=== PATIENT | female | born 1995 | race Caucasian/White ===

== ENCOUNTER 2023-08-31 09:22 | Outpatient (OUT) | payer MEDICAID, SELFPAY ==
--- NOTE | 2023-08-31 09:25 | US_ITS ---
The [address] [address] Patient Name: DAKSHA HUYNH MRN: [id number] date: 1995 Sex: F Assigned Patient Location: [facility] Current Patient Location: [facility] Accession/Order Number: [id number] Exam Date: 08/31/2023 09:25 Report Date: 08/31/2023 12:39 At the request of: JULIEN GUTIÉRREZ Procedure: US pelvis w/ transvaginal EXAMINATION: US pelvis w/ transvaginal HISTORY: OVARIAN CYST COMPARISON: Comparison report from [facility] dated 07/28/2023 FINDINGS: Transabdominal and transvaginal images The uterus is normal in size, contour and echotexture measuring 8.9 x 3.6 x 6.0 cm. No focal myometrial mass. Uterus is anteverted, anteflexed The endometrium measures 7 mm, normal The right ovary is normal measuring 4.3 x 1.7 x 1.8 cm. Normal color and Doppler flow. Resolution of previously identified cyst. The left ovary is normal in appearance measuring 4.9 x 3.3 x 4.2 cm. Normal color and Doppler flow. 4.0 x 3.8 x 2.9 cm area of anechoic echogenicity. No free fluid US/US pelvis w/ transvaginal IMPRESSION: 4.0 cm left ovarian simple cyst Normal right ovary Electronically authenticated by: BORIS TALLEY Date: 08/31/2023 12:39
== END 2023-08-31 09:23 | disposition home or self-care (01) ==
LOC: NOMS 09:22
PROVIDERS: PCP Family Medicine; Visit Provider Obstetrics & Gynecology
DX: N83.201 Unspecified ovarian cyst, right side (principal)
CPT/HCPCS: 76830; 76856

== ENCOUNTER 2024-11-23 20:32 | Outpatient (REF) | payer MEDICAID, SELFPAY ==
--- OUTSIDE RECORDS SUMMARY | 2024-11-23 20:36 | XMS_ITS | CCD ---
Author Organization [facility] Care Team Providers Care Janitor Helper Name Role Phone HOUSE, SR DAVE P Unavailable Unavailable HOUSE, SR DAVE P Unavailable Unavailable BRANDEN LUU Unavailable Unavailable CAMILLE VALENCIA Attending Unavailable ANNIE, CAMILLE Admitting Unavailable AHDOMARYBEL LAURENT Consulting Unavailable CAMILLE VALENCIA Consulting Unavailable PAY, NIECY Admitting Unavailable PAY, NIECY Attending Unavailable PAY, NIECY Consulting Unavailable DAVE BERNARDO Primary Care Unavailable Elizabeth Lema Unavailable JANEEN Vee Attending Provider Ary Vee Unavailable JULIEN GUTIÉRREZ Referring Unavailable DAVE BERNARDO Primary Care Unavailable Dave Bernardo MD Primary Care Provider Unavailable Primary Care Provider Unavailabl e No Pcp, No Pcp Primary Care Provider Unavailabl e Ly DO, Marce Mirta Attending Provider NO FAMILY, PHYSICIAN Primary Care Provider Unava ilable Ly, Marce L Attending Unavailable Ly, Marce L Admitting Unavailable NO FAMILY, PHYSICIAN Primary Care Unavailable RUSHER, ERIC S Attending Unavailable RUSHER, ERIC S Attending Unavailable RUSHER, ERIC S Attending Unavailable RUSHER, ERIC S Referring Unavailable RUSHER, ERIC S Attending Unavailable RUSHER, ERIC S Attending Unavailable RUSHER, ERIC S Referring Unavailable JULIEN GUTIÉRREZ Attending Unavailable RUSHER, ERIC S Attending Unavailable RUSHER, ANDREA Cameron Attending Unavailable SLIM, ANDREA Cameron Attending Unavailable SLIM, ERIC S Attending Unavailable DAVE BERNARDO Primary Care Unavailable TERRIE RUIZ Attending Unavailable HAL OBRIEN Attending Unavailable HAL OBRIEN Referring Unavailable DAVE BERNARDO Primary Care Unavailable JULIEN GUTIÉRREZ Referring Unavailable NO PCP, NO PCP Primary Care Unavailable NO PCP, NO PCP Primary Care Unavailable ERIC SOTOMAYOR Referring Unavailable NO PCP, NO PCP Primary Care Unavailable BORIS PATRICK Attending Unavailable BORIS PATRICK Referring Unavailable NO PCP, NO PCP Primary Care Unavailable BORIS PATRICK Referring Unavailable NO PCP, NO PCP Primary Care Unavailable ERIC SOTOMAYOR S Admitting Unavailable ERIC SOTOMAYOR Attending Unavailable ERIC SOTOMAYOR Referring Unavailable NO PCP, NO PCP Primary Care Unavailable BORIS PATRICK Attending Unavailable NO PCP, NO PCP Primary Care Unavailable NO PCP, NO PCP Primary Care Unavailable NANY LORENZO Attending Unavailable RYAN PRO Referring Unavailable NO PCP, NO PCP Primary Care Unavailable NONA CHIANG Attending Unavailable NONA CHIANG Referring Unavailable NO PCP, NO PCP Primary Care Unavailable Allergies Allergy Classification Reported Allergen(s) Allergy Type Date of Onset Reaction(s) Facility (1 source) Penicillin G Drug Allergy Unknown [facility] Other (3 sources) Bee Venom Protein (Honey Bee); Translations: [BEE VENOM PROTEIN (HONEY BEE)] Propensity to adverse reactions to drug 5 [facility] Medications Current Medications Medication Drug Class(es) Dates Sig (Normalized) Sig (Original) acetaminophen 500 mg oral tablet (11 sources) acetaminophen (T ylenol) 500 MG tablet Take by mouth Active take 2 tablets by mo uth every six hours as needed for pain acetaminophen (TYLENOL) 325 mg tablet Ta ke 2 tablets (650 mg total) by mouth every 6 (six) hours as needed for pain. Active celecoxib 100 mg oral capsule (1 source) Nonsteroidal Anti-inflammatory Drug Start: 10-20-2024 take 1 capsule by mouth twice daily for pain celecoxib (CeleBREX) 100 MG capsule TAKE 1 CAPSULE BY MOUTH TWICE A DAY FOR PAIN DO NOT TAKE WITH OTHER NSAIDS 10/20/2024 Active cyclobenzaprine hydrochloride 10 mg oral tablet (8 sources) Muscle Relaxant Start: 02-18-2024 take 1 tablet by mouth twice daily as needed for muscle spasms cyclobenzaprine (FLEXERIL) 10 mg tablet Take 1 tablet (10 mg total) by mouth 2 (two) times a day as needed for muscle spasms. 10 tablet 02/18/2024 Active meloxicam 15 mg oral tablet (18 sources) Nonsteroidal Anti-inflammatory Drug Start: 09-16-2023 End: 06-28-2024 take 1 tablet by mouth once daily meloxicam (Mobic) 15 MG tablet Indications: Plantar fascial fibromatosis TAKE 1 TABLET BY MOUTH EVERY DAY 30 tablet 2 06/08/2024 06/28/2024 Discontinued (Therapy completed) methylPREDNISolone (3 sources) Corticosteroid Start: 07-20-2024 End: 08-09-2024 methylPREDNISolone (Medrol Dospak) 4 MG tablets Indications: Plantar fasciitis Take as directed on package. 21 tablet 07/20/2024 08/09/2024 Discontinued (Therapy completed) Start: 07-20-2024 methylPREDNISo lone (Medrol Dospak) 4 MG tablets Indications: Plantar fasciitis Take as directed on package. 21 tablet 07/20/2024 Active ezghlxit-bphe-HN-calcium &mi ns (THERAGRAN-M) 9 mg iron-400 mcg tablet (1 source) tkmemjnr-jaak-PX -calcium &mins (THERAGRAN-M) 9 mg iron-400 mcg tablet Take 1 tablet by mouth in the morning. Active topiramate 25 mg oral tablet (17 sources) Start: 03-07-2024 topiramate (Topamax) 25 MG t ablet 03/07/2024 Active take 1 capsule by mouth in the m orning topiramate (TOPAMAX) 25 mg capsule Take 1 capsule (25 mg total) by mouth in the morning. Active Completed/Discontinued Medications Medication Drug Class(es) Dates Sig (Normalized) Sig (Original) betamethasone 3 mg/ml / betamethasone acetate 3 mg/ml injectable suspension (8 sources) Corticosteroid Start: 07-08-2024 End: 07-08-2024 betamethasone acetate-betamethason e sodium phosphate (Celestone) injection 3 mg Start: 07-08-2024 End: 07-08-2024 inject 3 mg by intramuscular injection once 3 mg, Intramuscular, Once, On Thu07/08/24 at 1045, For 1 dose Start: 07-08-2024 End: 07-08-2024 betamethasone acetate-betamethasone sodium phosphate (Celestone) injection 3 mg Start: 07-08-2024 End: 07-08-2024 inject 3 mg by intramuscular injection once 3 mg, Intramuscular, Once, On Thu07/08/24 at 1045, For 1 dose Start: 01-11-2024 End: 01-11-2024 betamethasone acetate-betamethasone sodium phosphate (Celestone) injection 3 mg Start: 01-11-2024 End: 01-11-2024 inject 3 mg by intramuscular injection once 3 mg, Intramuscular, Once, On Thu01/11/24 at 0915, For 1 dose metFORMIN hydrochloride 500 mg oral tablet (3 sources) Biguanide End: 05-02-2024 take 1 tablet by mouth twice daily metFORMIN (GLUCOPHAGE) 500 mg tablet Take 1 tablet by mouth 2 (two) times a day. 05/02/2024 Discontinued (Therapy completed) metFORMIN HCl No t-Taking/PRN metFORMIN HCl Ac tive naltrexone hydrochloride 50 mg oral tablet (4 sources) Opioid Antagonist Start: 08-10-2014 take 1 tablet by mouth every twenty-four hours Naltrexone HCl 50 mg 1 tablet Orally Once a day for 30 day(s) Aug, Not-Taking/PRN predniSONE 10 mg oral tablet (4 sources) Start: 08-09-2024 End: 11-23-2024 predniSONE (Deltasone) 10 MG tablet Indications: Plantar fasciitis Take twice daily for 5 days, then take once daily for 5 days. 15 tablet 08/09/2024 11/23/2024 Discontinued 1 ml triamcinolone acetonide 40 mg/ml prefilled syringe (8 sources) Corticosteroid Start: 07-08-2024 End: 07-08-2024 triamcinolone acetonide (Kenalog-40) injection 20 mg Start: 07-08-2024 End: 07-08-2024 inject 20 mg by intramuscular injection once 20 mg, Intramuscular, Once, On Thu07/08/24 at 1045, For 1 dose Start: 07-08-2024 End: 07-08-2024 triamcinolone acetonide (Kenalog-40) injection 20 mg Start: 07-08-2024 End: 07-08-2024 inject 20 mg by intramuscular injection once 20 mg, Intramuscular, Once, On Thu07/08/24 at 1045, For 1 dose Start: 01-11-2024 End: 01-11-2024 triamcinolone acetonide (Kenalog-40) injection 20 mg Start: 01-11-2024 End: 01-11-2024 inject 20 mg by intramuscular injection once 20 mg, Intramuscular, Once, On Thu01/11/24 at 0915, For 1 dose Problems Active Problems Problem Classification Problem Date Documented Da te Episodic/Chronic Abdominal pain (1 source) Pain in female pelvis; Translations: [Pelvic and perineal pain] 11-23-2024 Episodic Anxiety disorders (1 source) Anxiety disorder, unspecified; Translations: [ANXIETY DISORDER UNSPECIFIED] Onset: 11-29-2019 Chronic Diabetes mellitus without complication (3 sources) Type 2 diabetes mellitus without complication; Translations: [Type 2 diabetes mellitus without complications] Onset: 05-02-2024 05-02-2024 Chronic Fracture of lower limb (2 sources) Stress fracture of right calcaneus; Translations: [Stress fracture, right foot, initial encounter for fracture] 06-28-2024 Episodic Menstrual disorders (2 sources) Excessive and frequent menstruation with regular cycle; Translations: [Irregular periods] Onset: 07-28-2023 11-23-2024 Chronic Other acquired deformities (10 sources) Equinus contracture of the ankle; Translations: [Contracture, right ankle] 01-11-2024 Chronic Other connective tissue disease (19 sources) Plantar fasciitis; Translations: [Plantar fascial fibromatosis] 01-11-2024 Episodic Other connective tissue disease (8 sources) Pain in right foot; Translations: [Pain in right foot] 01-11-2024 Episodic Other connective tissue disease (2 sources) Plantar fascial fibromatosis; Translations: [Plantar fascial fibromatosis] 01-24-2024 Episodic Other connective tissue disease (2 sources) Tendinitis of right posterior tibial tendon; Translations: [Posterior tibial tendinitis, right leg] 11-19-2023 Episodic Other connective tissue disease (2 sources) Pain of right calf; Translations: [Pain in right lower leg] 11-19-2023 Episodic Other connective tissue disease (4 sources) Heel pain; Translations: [Pain in right foot] 11-19-2023 Episodic Other connective tissue disease (4 sources) Nontraumatic rupture of muscle; Translations: [Other rupture of muscle (nontraumatic), unspecified site] 06-28-2024 Episodic Other connective tissue disease (2 sources) Other bursitis of knee, right knee; Translations: [Other bursitis of knee, right knee] Onset: 09-14-2024 Episodic Other connective tissue disease (1 source) Pain in lower limb Onset: 07-12-2024 Episodic Other connective tissue disease (1 source) Synovial cyst of popliteal space [Figueroa], right knee; Translations: [Synovial cyst of popliteal space (Figueroa), right knee] Onset: 11-01-2024 Episodic Other gastrointestinal disorders (2 sources) Irritable bowel syndrome; Translations: [Irritable bowel syndrome without diarrhea] 06-24-2024 Chronic Other gastrointestinal disorders (2 sources) Irritable bowel syndrome without diarrhea; Translations: [Irritable bowel syndrome] 06-24-2024 Chronic Other gastrointestinal disorders (1 source) Constipation, unspecified; Translations: [Constipation, unspecified] Onset: 07-21-2024 Episodic Other injuries and conditions due to external causes (2 sources) Posterior medrano splints; Translations: [Other injury of other muscle(s) and tendon(s) at lower leg level, right leg, initial encounter] 11-19-2023 Episodic Other nervous system disorders (4 sources) Difficulty walking; Translations: [Difficulty in walking, not elsewhere classified] 11-04-2023 Chronic Other non-traumatic joint disorders (1 source) Pain of right wrist; Translations: [Pain in right wrist] Episodic Other non-traumatic joint disorders (1 source) Pain in right wrist Episodic Other non-traumatic joint disorders (2 sources) Instability of joint of right ankle; Translations: [Other instability, right ankle] 05-02-2024 Episodic Other non-traumatic joint disorders (1 source) Pain in right knee; Translations: [Pain in right knee] Onset: 07-12-2024 Episodic Other skin disorders (1 source) Localized swelling, mass and lump, right lower limb; Translations: [Localized swelling, mass and lump, right lower limb] Onset: 09-14-2024 Episodic Other upper respiratory infections (5 sources) Acute pharyngitis, unspecified; Translations: [Acute upper respiratory infection, unspecified] Onset: 06-19-2020 Episodic Residual codes; unclassified (6 sources) History of operative procedure on foot; Translations: [Other specified postprocedural states] 05-02-2024 Episodic Unclassified (1 source) CONTACT W/AND (SUSP) EXPOS COVID-19; Translations: [CONTACT W/AND (SUSP) EXPOS COVID-19] Onset: 06-21-2020 Unclassified (1 source) PERSONAL HISTORY OF COVID-19; Translations: [PERSONAL HISTORY OF COVID-19] Onset: 06-21-2020 Unclassified (1 source) Leg Pain, Swelling Onset: 11-18-2023 Past or Other Problems Problem Classification Problem Date Documented Date Episodic/Chronic Immunizations and screening for infectious disease (1 source) Contact with and (suspected) exposure to other viral communicable diseases; Translations: [Contact with and (suspected) exposure to other viral communicable diseases Z20.828] Onset: 12-25-2020 Resolved: 12-25-2020 Episodic Nonspecific chest pain (4 sources) Chest pain, unspecified; Translations: [Other chest pain] Onset: 11-27-2019 Episodic Other connective tissue disease (20 sources) Plantar fasciitis of right foot; Translations: [Plantar fascial fibromatosis] Onset: 06-24-2023 06-24-2023 Episodic Other connective tissue disease (1 source) Pain in right leg; Translations: [Pain in right leg] Onset: 11-18-2023 Episodic Other connective tissue disease (1 source) Leg swelling symptom Onset: 11-18-2023 Episodic Ovarian cyst (20 sources) Cyst of left ovary; Translations: [Unspecified ovarian cyst, left side] Onset: 09-07-2023 09-07-2023 Episodic Residual codes; unclassified (1 source) Other specified postprocedural states; Translations: [Other specified postprocedural states] Onset: 05-12-2024 Episodic Spondylosis; intervertebral disc disorders; other back problems (1 source) Backache Onset: 02-18-2024 Episodic Sprains and strains (3 sources) Strain of muscle, fascia and tendon of lower back, initial encounter; Translations: [Strain of unspecified muscle, fascia and tendon at wrist and hand level, right hand, initial encounter] Onset: 12-15-2016 Episodic Unclassified (1 source) Preprocedural examination done 05-02-2024 Unclassified (2 sources) Stress fracture of right calcaneus 06-28-2024 Results Test Name Value Interpretation Reference Range Facility MR KNEE RT WO CONTon 025 MR KNEE RT WO CONT MR KNEE RT WO CONT MR KNEE RT WO CONT CLINICAL INFORMATION: Figueroa's cyst of knee, right; Pes anserinus bursitis of right knee. COMPARISON: 07/12/2024. PROCEDURE: ?Multisequence, multiplanar MR images of the knee were obtained. FINDINGS: MENISCI Medial meniscus: Intact. Lateral meniscus: Intact. LIGAMENTS Cruciate ligaments: The ACL and PCL are intact. Medial collateral ligament: Superficial and deep components intact. No periligamentous edema. Lateral collateral ligament: Intact. EXTENSOR MECHANISM Extensor mechanism: The distal quadriceps and patellar tendons are intact. The patella is normally positioned within the trochlear groove. There is no retinacular disruption. FLUID Fluid: No joint effusion. No Figueroa's cyst. OSSEOUS and ARTICULAR STRUCTURES Bones: No fracture, stress reaction, or osseous lesion is seen. Red marrow. Patellofemoral compartment: No hyaline cartilage disease. Medial compartment: No hyaline cartilage disease. Lateral compartment: No hyaline cartilage disease. IMPRESSION: * No acute meniscal or ligamentous pathology. * No bursitis or Figueroa's cyst. Finalized by Seven Mena MD on 11/08/2024 10:42 AM Normal [facility] HCG ( test) IA.sheni d Ql (U)Ordered By: Marce Barnes on 07-21-2024 HCG ( test) Ql (U) Urine human chorionic gonadotropin (hCG) detection by immunoassay [facility] HCG,Urineon 07-21-2024 Beta HCG ( test) Ql (U) Negative Normal [facility] Comment on above: Result Comment: PERF ORMED BY: [place] [address] PATHOLOGIST SMELTING ENGINEER RYLAN RAMIREZ M.D. Performed By: #### U HCG #### [address] D-DIMERon 07-12-2024 D DIMER <^150 Normal 1-255 [facility] Comment on above: Result Comment: Resu lts <255 ng/mL DDU: The presensence of a VTE can safely be excluded with a negative D-Dimer result and Wells score. A negative result doesn't exclude the possibility of DIC. The test should be repeated along with other diagnostic tests if the patient's symptoms persist or worsen. Performed By: #### D [facility] #### [facility] ([facility]) [address] [place] [address] VIR XR KNEE RT 3 VWSon XR KNEE RT 3 VWS XR KNEE RT 3 VWS EXAM: XR KNEE RT 3 VWS CLINICAL INFORMATION: knee pain. COMPARISON: None. FINDINGS: There is no evidence for an acute displaced fracture or malalignment of the knee. There is no knee joint effusion. The knee joint spaces are well preserved. IMPRESSION: Normal 3 views of the knee. Finalized by Linus Parada MD on 07/12/2024 5:44 PM Normal [facility] MR FOOT RIGHT WO IV CONTRAST on 06-28-2024 MR FOOT RIGHT WO IV CONTRAST EXAM/TECHNIQUE: MR FOOT RIGHT WO IV CONTRAST, focused to the hindfoot. HISTORY: Right heel pain. Recent [place] procedure. Pain currently worse than before the procedure. Concern for plantar fascial tear, calcaneal stress fracture. COMPARISON: MRI 09/07/2023. Radiographs 12/23/2022. RESULT: Cartilage: Tibiotalar joint cartilage and subtalar joint cartilage appears to be preserved. Midfoot articular cartilage appears to be preserved. Ligaments: Talofibular ligaments, tibiofibular ligaments, calcaneofibular ligament and deltoid ligament all appear to be intact. Tendons: Achilles tendon, medial flexor tendons, peroneal tendons and extensor tendons are intact. Joint Fluid: Physiologic quantity of joint fluid. Bone Marrow: No evidence for fracture, osteochondral lesion, osteomyelitis or other marrow replacing lesion. Plantar Aponeurosis: Thickening and increased signal involving the central band of the plantar fascia with possible tiny area of partial-thickness tearing/stripping near origin, otherwise appears intact. Interval improved adjacent edema signal compared to prior with some residual edema signal. Sinus Tarsi: Sinus tarsi is within normal limits. Muscle: Muscle bulk and signal intensity is within normal limits. Tarsal Tunnel: Tarsal tunnel is within normal limits. Other: Small amount of plantar subcutaneous edema/stranding, superficial to the plantar fascial origin, likely postsurgical or reactive. No loculated collection. IMPRESSION: Planter fasciitis with possible tiny area of partial-thickness stripping/tearing near origin involving the central band. Interval improved adjacent edema signal. No evidence for fracture. ELECTRONICALLY SIGNED BY: Devan Mancilla MD Normal Not Available HCG ( test) Ql (U)o n 05-12-2024 Beta HCG ( test) Ql (U) Negative Normal [facility]G [facility] Comment on above: Performed By: #### 2 106-3 #### [facility] ([id number]) [address] [place] [address], [place] [address] MR LUMBAR SPINE WO CONTon MR LUMBAR SPINE WO CONT MR LUMBAR SPINE WO CONT MR LUMBAR SPINE WO CONT CLINICAL INFORMATION: Low back pain. Bilateral leg numbness and weakness COMPARISON: Prior lumbar spine CT from October 2013 and 08/07/2015 PROCEDURE: Routine lumbosacral spine protocol MRI was obtained without contrast material. Multisequence, multiplanar imaging was obtained. FINDINGS: Numbering assumes 4 lumbar type vertebrae with partial sacralization of L5 and disc space narrowing at L5-S1 level appreciated. No compression deformities. There is normal alignment. Unremarkable bone marrow signal. The visualized cord is within normal limits. Normal appearance of the cauda equina nerve roots. The conus medullaris terminates at mid L1 level. Paravertebral and visualized intraabdominal structures are unremarkable. Level by level: L1-L2: No significant disc herniation, spinal canal stenosis or neuroforaminal narrowing. L2-L3: No significant disc herniation, spinal canal stenosis or neuroforaminal narrowing. L3-L4: No significant disc herniation, spinal canal stenosis or neuroforaminal narrowing. L4-L5: Minimal broad-based central disc bulge flattening the anterior thecal sac but without significant canal stenosis. Mild right facet joint hypertrophy. No neural foramen narrowing. L5-S1: No significant disc herniation, spinal canal stenosis or neuroforaminal narrowing. Right facet joint effusion. IMPRESSION: * Suggestion of transitional L5 and partial sacralization with narrowing of the intervening L5-S1 disc space and loss of height appreciated. * Minimal broad-based central disc bulge at L4-5 without canal stenosis but mild right facet joint hypertrophy. Right facet joint effusion at L5-S1 level. Finalized by Donovan Chance MD on 02/18/2024 10:53 AM Normal [facility] US PELVIC WITH TRANSVAGINALo n 12-08-2023 US PELVIC WITH TRANSVAGINAL US PELVIC WITH TRANSVAGINAL CLINICAL INFORMATION: Right ovarian cyst COMPARISON: 07/28/23. PROCEDURE: Transabdominal imaging was obtained for the detection of extra-adnexal pathology. Transvaginal imaging was obtained for better visualization of the adnexa and endometrium. FINDINGS: The uterus measures 8.4 x 6.1 x 3.5 cm. Endometrial thickness 5 mm. Right ovary 3.0 x 2.0 x 2.0 cm, no current cyst. Left ovary measures 3.4 x 2.2 x 2.0 cm. No free fluid. Some small follicles are noted. IMPRESSION: * No acute findings. Resolution of previously identified cyst. Finalized by Seven Mena MD on 12/08/2023 2:02 PM Normal [facility] Fibrin D-dimer DDU (PPP) [Ma ss/Vol]on 11-18-2023 D DIMER <150 Normal <255 [facility] Comment on above: Result Comment: Results <255 ng/mL DDU: The presence of a VTE can safely be excluded with a negative D-Dimer result and Wells score. A negative result doesn't exclude the possibility of DIC. The test be repeated along with other diagnostic tests if the patient's symptoms persist or worsen. [email or web address] Performed By: #### 4 [id number] #### [facility] ([id number]) [address] [place] [id number] MR FOOT RIGHT WO IV CONTRAST on 09-07-2023 MR FOOT RIGHT WO IV CONTRAST EXAM: MR FOOT RIGHT WO IV CONTRAST HISTORY: Heel pain. COMPARISON : Radiographs December 23, 2022 TECHNIQUE: Multiplanar multisequence MRI of the foot was performed without contrast. FINDINGS: The plantar fascia is intact and without thickening or nodularity. Edema is present along the medial cord plantar fascia. Achilles tendon is intact. Sinus tarsi fat is preserved. Flexor and extensor tendons appear intact. No evidence of recent fracture or stress reaction. IMPRESSION: Findings compatible with plantar fasciitis. No evidence of recent fracture or stress reaction. ELECTRONICALLY SIGNED BY: Ronnell Gonzalez, DO Normal Not Available US PELVIC WITH TRANSVAGINALo n 07-29-2023 US PELVIC WITH TRANSVAGINAL US PELVIC WITH TRANSVAGINAL HISTORY: Menorrhagia with irregular cycles. COMPARISON: 07/07/2013. TECHNIQUE: Multiplanar transabdominal and transvaginal ultrasonography of the pelvis using grayscale imaging, supplemented by color Doppler as needed. FINDINGS: The uterus measures 9.7 x 5.8 x 4.2 cm. Normal contour without focal lesions. Endometrial stripe measures 4 mm in thickness which is normal for menstruating female..The right ovary measures 4.7 x 3.4 x 2.5 cm with follicular cyst seen measuring 3.9 x 2.9 x 3.1 cm.The left ovary measures 2.7 x 1.5 x 1.5 cm. No adnexal masses. Color Doppler demonstrates arterial and venous flow in both ovaries The bladder is within normal limits. No fluid in the cul-de-sac.. IMPRESSION: Follicular cyst in the right ovary. Follow-up ultrasound examination after 3 menstrual periods is recommended to evaluate progression. Otherwise, unremarkable pelvic echo.. Finalized by Donovan Chance MD on 07/29/2023 9:48 PM Normal [facility] XR wrist RT min 3V*on 2023 XR wrist RT min 3V* [facility] [place] [employer] Other XR wrist RT min 3V* [facility] [employer] Other XR wrist RT min 3V* [address] [place] [address] [employer] Other XR wrist RT min 3V* [facility] [id number] [employer] Other XR wrist RT min 3V* XRay Report [place] [employer] Other XR wrist RT min 3V* Signed [employer] Other XR wrist RT min 3V* Patient: Mirna Leo MR#: [id number] [employer] Other XR wrist RT min 3V* : 1995 Acct:[id number] [employer] Other XR wrist RT min 3V* Age/Sex: 27 / F ADM Date: 03/17/23 [employer] Other XR wrist RT min 3V* Loc: XDUCLY Room: Type: REG CLI [employer] Other XR wrist RT min 3V* Attending Dr: Ary Vee [facility] [employer] Other XR wrist RT min 3V* Copies to: Ary Vee [facility] [employer] Other XR wrist RT min 3V* Ordering Provider: Ary Vee 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 Now with pain and popping [employer] Other XR wrist RT min 3V* COMPARISON: None [employer] Other XR wrist RT min 3V* FINDINGS: [employer] Other XR wrist RT min 3V* No focal soft tissue abnormality is seen. No acute bony process is noted. Joint spaces appear [employer] Other XR wrist RT min 3V* maintained without bony erosions. [employer] Other XR wrist RT min 3V* XR/XR wrist RT min 3V* [employer] Other XR wrist RT min 3V* IMPRESSION: Nort [employer] Other XR wrist RT min 3V* NO ACUTE BONY PROCESS. [employer] Other XR wrist RT min 3V* Impression dictated by: Víctor Singh Jr., Bernice03/17/2023 11:02 AM [employer] Other XR wrist RT min 3V* Dictation Location: [place] [address] [employer] Other XR wrist RT min 3V* Transcribed By: PWS 03/17/23 1102 [employer] Other XR wrist RT min 3V* Dictated By: Víctor Singh Jr, DO 03/17/23 1101 [employer] Other XR wrist RT min 3V* Signed By: [employer] Other XR wrist RT min 3V* 03/17/23 1102 No rt [employer] Other COVID Quick Testingon 2020 Result Negative [employer] Other CULTURE THROATon 06-19-2020 CULTURE THROAT Culture Observations: Normal respiratory zander. Normal [facility] Comment on above: Performed By: #### S SCRN, THRTCX #### [facility] [address] [address] Kesha Haley [facility] 06-07 Covid-19 PCR NOT DETECTED Normal NOT DETECTED [facility] Comment on above: Result Comment: This test is not yet approved or cleared by the [place] FDA. When there are no FDA-approved or cleared tests available, and other criteria are met, FDA can make tests available under an emergency access mechanism called an Emergency Use Authorization (EUA). The EUA for this test is supported by the Motor Equipment Sergeant of Health and Human Service's (HHS's) declaration that circumstances exist to justify the emergency use of in vitro diagnostics for the detection and/or diagnosis of the virus that causes COVID-19. This EUA will remain in effect (meaning this test can be used) for the duration of the COVID-19 declaration justifying emergency of IVDs, unless it is terminated or revoked by FDA (after which the test may no longer be used). When diagnostic testing is negative, the possibility of a false negative should be considered in the context of a patient's recent exposures and the presence of clinical signs and symptoms consistent with SARS-CoV-2. Performed By: #### C VDTBH #### [facility] [address] [place], [place] [address] Kesha Haley STREPT SCREENon 06-19-2020 STREP SCREEN A Negative Normal NEGATIVE [facility] Comment on above: Performed By: #### S SCRN, THRTCX #### [facility] [address] [place], [place] [address] Kesha Haley XR CHEST 2 Von 11-27-2019 XR CHEST 2 V EXAM: XR CHEST 2 V HISTORY: Chest pain COMPARISON: Chest x-ray of 12/18/2013. TECHNIQUE: 2 views of the chest are submitted for review. FINDINGS: The heart size is normal. Lungs are clear. No dense focal consolidation, pneumothorax or pleural effusion is seen. The visualized osseous structures appear unremarkable. IMPRESSION: No radiographic evidence for acute cardiopulmonary disease. Electronically authenticated by: MARYBEL GROSS Date: 2019-11-27 15:29 Normal [facility] ED Noteon 12-15-2016 HIM IP Note OR Chief Information Officer Normal [facility] ED Provider Noteon 7 HIM IP Note OR Chief Information Officer Normal [facility] Vital Signs Date Time Vital Sign Value Performing Clinician Facility 11-23-2024 14:48-0400 Body mass index (BMI) [Ratio] 39.69 kg/m2 Odalis LIU Work Phone: [facility] 11-23-2024 14:48-0400 Body weight 98.43 kg Odalis LIU Work Phone: [facility] 11-23-2024 14:48-0400 Diastolic blood pressure 78 mm[Hg] Odalis LIU Work Phone: [facility] 11-23-2024 14:48-0400 Systolic blood pressure 118 mm[Hg] Odalis Zander ALEXA Work Phone: [facility] 08-09-2024 08:53-0400 Body height 157.5 cm Eric Sotomayor DPM Work Phone: [facility] 08-09-2024 08:53-0400 Body mass index (BMI) [Ratio] 33.84 kg/m2 Eric Sotomayor DPM Work Phone: [facility] 08-09-2024 08:53-0400 Body weight 83.92 kg Eric Rus DPM Work Phone: [facility] 07-21-2024 12:35-0400 Diastolic blood pressure 78 mm[Hg] PHYSICIAN NO [facility] 07-21-2024 12:35-0400 Heart rate 79 /min PHYSICIAN NO [facility] 07-21-2024 12:35-0400 Respiratory rate 16 /min PHYSICIAN NO [facility] 07-21-2024 12:35-0400 SaO2% (BldA) [Mass fraction] 98 % PHYSICIAN NO [facility] 07-21-2024 12:35-0400 Systolic blood pressure 123 mm[Hg] PHYSICIAN NO [facility] 07-21-2024 10:21-0400 Body height 157.48 cm PHYSICIAN NO [facility] 07-21-2024 10:21-0400 Body weight 90.71 kg PHYSICIAN NO [facility] 07-08-2024 10:13-0400 Body height 157.5 cm Eric Sotomayor DPM Work Phone: [facility] 07-08-2024 10:13-0400 Body mass index (BMI) [Ratio] 33.84 kg/m2 Eric Sotomayor DPM Work Phone: [facility] 07-08-2024 10:13-0400 Body weight 83.92 kg Ericjodi Sotomayor DPM Work Phone: [facility] 06-28-2024 08:52-0400 Body height 157.5 cm Eric Sotomayor DPM Work Phone: [facility] 06-28-2024 08:52-0400 Body mass index (BMI) [Ratio] 33.84 kg/m2 Eric Rusher DPM Work Phone: [facility] 06-28-2024 08:52-0400 Body weight 83.92 kg Eric Rusher DPM Work Phone: [facility] 06-24-2024 10:03-0400 Body height 157.48 cm [facility] 06-24-2024 10:03-0400 Body mass index (BMI) [Ratio] 36.6 kg/m2 [facility] 06-24-2024 10:03-0400 Body weight 90.71 kg [facility] 06-24-2024 10:03-0400 Diastolic blood pressure 72 mm[Hg] [facility] 06-24-2024 10:03-0400 Heart rate 91 /min [facility] 06-24-2024 10:03-0400 Systolic blood pressure 103 mm[Hg] [facility] 05-02-2024 13:03-0500 Body height 157.5 cm Eric Rusher DPM Work Phone: [facility] 05-02-2024 13:03-0500 Body mass index (BMI) [Ratio] 36.76 kg/m2 [facility] 2 [facility] [place] [facility] 05-02-2024 13:03-0500 Body weight 91.17 kg Pm 2 [facility] [place] [facility] 05-02-2024 11:00-0500 Body mass index (BMI) [Ratio] 33.84 kg/m2 Eric Rusher DPM Work Phone: [facility] 05-02-2024 11:00-0500 Body weight 83.92 kg Eric Rusher DPM Work Phone: [facility] 01-11-2024 08:46-0500 Body height 157.5 cm Eric Rusher DPM Work Phone: [facility] 01-11-2024 08:46-0500 Body mass index (BMI) [Ratio] 33.84 kg/m2 Eric Rusher DPM Work Phone: [facility] 01-11-2024 08:46-0500 Body weight 83.92 kg Eric Sotomayor DPM Work Phone: [facility] 11-19-2023 16:16-0400 Body height 157.5 cm Andrea Sotomayor DPM Work Phone: [facility] 11-19-2023 16:16-0400 Body mass index (BMI) [Ratio] 33.84 kg/m2 Andrea Sotomayor DPM Work Phone: [facility] 11-19-2023 16:16-0400 Body weight 83.92 kg Andrea Sotomayor DPM Work Phone: [facility] 11-04-2023 08:37-0400 Body height 157.5 cm Andrea Sotomayor DPM Work Phone: [facility] 11-04-2023 08:37-0400 Body mass index (BMI) [Ratio] 33.84 kg/m2 Andrea Sotomayor DPM Work Phone: [facility] 11-04-2023 08:37-0400 Body weight 83.92 kg Andrea Sotomayor DPM Work Phone: [facility] 03-17-2023 09:50-0500 Body height 160.02 cm Ary Mariusz Other [employer] Other 03-17-2023 09:50-0500 Body mass index (BMI) [Ratio] 35.39 kg/m2 Ary Mariusz Other [employer] Other 03-17-2023 09:50-0500 Body temperature 98.2 [degF] Ary Mariusz Other [employer] Other 03-17-2023 09:50-0500 Body weight 90.63 kg Ary Mariusz Other [employer] Other 03-17-2023 09:50-0500 Respiratory rate 18 /min Ary Mariusz Other [employer] Other 03-17-2023 09:50-0500 SaO2% (BldA) [Mass fraction] 98 % Ary Mariusz Other [employer] Other 12-25-2020 13:15-0400 Body height 160.02 cm Elizabeth Lema Other [employer] Other 12-25-2020 13:15-0400 Body mass index (BMI) [Ratio] 38.08 kg/m2 Elizabeth Lema Other [employer] Other 12-25-2020 13:15-0400 Body temperature 98.4 [degF] Elizabeth Lema Other [employer] Other 12-25-2020 13:15-0400 Body weight 97.52 kg Elizabeth Lema Other [facility] Other 12-25-2020 13:15-0400 Respiratory rate 18 /min Elizabeth Lema Other [facility] Other 12-25-2020 13:15-0400 SaO2% (BldA) [Mass fraction] 98 % Elizabeth Lema Other [employer] Other Encounters Encounter Date Encounter Type Care Provider Facility Start: 11-23-2024 End: 11-23-2024 Periodic preventive med est patient 18-39 yrs Odalis LIU Work Phone: [facility] Comment on above: Well woman exam with routine gynecological exam; Pelvic pain in female; Irregular menses Start: 11-23-2024 End: 11-23-2024 Bamboo flowsheet Odalis LIU Work Phone: [facility] [place] [facility] Start: 11-23-2024 End: 11-23-2024 Bamboo flowsheet Odalis LIU Work Phone: [facility] [place] [facility] Start: 11-23-2024 End: 11-23-2024 Patient encounter procedure Odalis Fermin PA Work Phone: [facility] Work Phone: Start: 11-01-2024 End: 11-01-2024 ambulatory [facility] Start: 09-14-2024 End: 09-14-2024 ambulatory [facility]AN J [facility] Start: 08-09-2024 End: 08-09-2024 ambulatory ERIC SOTOMAYOR Not Available Start: 08-09-2024 End: 08-09-2024 Postop follow up visit related to original px Eric Sotomayor DPM Work Phone: [facility] Comment on above: S/P foot surgery (Pr imary Dx); Plantar fasciitis; Equinus contracture of right ankle Start: 07-21-2024 Non-patient / Non-visit [facility]YSICIAN [facility] Work Phone: Start: 07-21-2024 End: 07-21-2024 Admission to same day surgery center PHYSICIAN NO [facility] Work Phone: Start: 07-21-2024 End: 07-21-2024 ambulatory PHYSICIAN NO [facility] Work Phone: Start: 07-20-2024 End: 07-21-2024 Telephone encounter Eric Sotomayor DPM Work Phone: [facility] Comment on above: Advice Only (PT Refe rral Rx Request) Start: 07-12-2024 End: 07-12-2024 Emergency department patient visit NO PCP NO PCP [facility] Start: 07-08-2024 End: 07-08-2024 Bamboo flowsheet Eric Sotomayor DPM Work Phone: [facility] Start: 07-08-2024 End: 07-08-2024 Bamboo flowsheet Eric Sotomayor DPM Work Phone: [facility] Start: 07-08-2024 End: 07-08-2024 Patient encounter procedure Eric Sotomayor DPM Work Phone: [facility] Comment on above: Plantar fasciitis (P rimary Dx); Right foot pain; S/P foot surgery Start: 07-08-2024 End: 07-08-2024 ambulatory ERIC SOTOMAYOR Not Available Start: 07-04-2024 End: 07-04-2024 ambulatory ERIC S DOUGLASHER Not Available Start: 06-28-2024 End: 06-28-2024 Bamboo flowsheet Eric Sotomayor DPM Work Phone: [facility] Start: 06-28-2024 End: 06-28-2024 Bamboo flowsheet Eric S Rusher DPM Work Phone: [facility] Start: 06-28-2024 End: 06-28-2024 Office outpatient visit 25 minutes Eric Sotomayor DPM Work Phone: [facility] Comment on above: Rupture of muscle, n ontraumatic (Primary Dx); Stress fracture of right calcaneus; Plantar fasciitis; Right foot pain Start: 06-28-2024 End: 06-28-2024 ambulatory ERIC SOTOMAYOR Not Available Start: 06-24-2024 End: 06-24-2024 ambulatory [facility] Work Phone: Start: 06-24-2024 End: 06-24-2024 Patient encounter procedure [facility] Work Phone: Start: 06-08-2024 End: 06-08-2024 Refill Eric Sotomayor DPM Work Phone: [facility] Comment on above: Plantar fascial fibr omatosis Start: 05-25-2024 End: 05-25-2024 ambulatory ERIC SOTOMAYOR Not Available Start: 05-12-2024 End: 05-12-2024 Evaluation and management of inpatient [facility] Start: 05-12-2024 End: 05-12-2024 Evaluation and management of inpatient [facility] Start: 05-02-2024 End: 05-02-2024 Bamboo flowsheet Eric Sotomayor DPM Work Phone: [facility] Start: 05-02-2024 End: 05-02-2024 Bamboo flowsheet Eric Sotomayor DPM Work Phone: [facility] Start: 05-02-2024 End: 05-02-2024 ambulatory [facility] Start: 05-02-2024 End: 05-02-2024 ambulatory [facility] Start: 05-02-2024 Encounter for other preprocedural examination [facility] Start: 05-02-2024 End: 05-02-2024 Patient encounter procedure [facility] Pre-Admission Testing [address] [place] [address] - Pre Admit Comment on above: Preop examination (P rimary Dx); Type 2 diabetes mellitus without complication, unspecified whether longterm insulin use ([facility]) Start: 05-02-2024 End: 05-02-2024 Preprocedural examination done [address] Start: 05-02-2024 End: 05-02-2024 Office outpatient visit 25 minutes Eric Sotomayor DPM Work Phone: [facility] Comment on above: Plantar fasciitis (P rimary Dx); Right foot pain; Equinus contracture of right ankle; Instability of right ankle joint; Difficulty walking; S/P foot surgery Start: 05-02-2024 End: 05-02-2024 ambulatory ERIC SOTOMAYOR Not Available Start: 05-02-2024 End: 05-02-2024 ambulatory BORIS PATRICK [facility] Start: 02-18-2024 End: 02-18-2024 Emergency department patient visit NO PCP NO PCP [facility] Start: 01-24-2024 End: 01-25-2024 Refill Eric Sotomayor DPM Work Phone: [facility] Comment on above: Plantar fascial fibr omatosis Start: 01-11-2024 End: 01-11-2024 Bamboo flowsheet Eric Sotomayor DPM Work Phone: [facility] Start: 01-11-2024 End: 01-11-2024 Bamboo flowsheet Eric Sotomayor DPM Work Phone: [facility] Start: 01-11-2024 End: 01-11-2024 Office outpatient visit 25 minutes Eric Sotomayor DPM Work Phone: [facility] Comment on above: Plantar fasciitis (P rimary Dx); Right foot pain; Equinus contracture of right ankle Start: 01-11-2024 End: 01-11-2024 ambulatory ERIC SOTOMAYOR Not Available Start: 12-08-2023 End: 12-08-2023 ambulatory JULIEN Vika MARLA [facility] Start: 11-19-2023 End: 11-19-2023 ambulatory ANDREA SOTOMAYOR Not Available Start: 11-19-2023 End: 11-19-2023 Office outpatient visit 15 minutes Andrea Sotomayor DPM Work Phone: [facility] Comment on above: Posterior medrano splin ts, right, initial encounter (Primary Dx); Tibialis posterior tendonitis, right; Pain of right calf; Plantar fasciitis; Inflammatory heel pain, right Start: 11-18-2023 End: 11-19-2023 Emergency department patient visit HAL OBRIEN [facility] Start: 11-04-2023 End: 11-04-2023 Bamboo flowsheet Anrdea Sotomayor DPM Work Phone: [facility] Start: 11-04-2023 End: 11-04-2023 Bamboo flowsheet Andrea Sotomayor DPM Work Phone: [facility] Start: 11-04-2023 End: 11-04-2023 Office outpatient visit 15 minutes Andrea Sotomayor DPM Work Phone: [facility] Comment on above: Plantar fasciitis (P rimary Dx); Inflammatory heel pain, right; Equinus contracture of right ankle; Difficulty walking Start: 11-04-2023 End: 11-04-2023 ambulatory ANDREA SOTOMAYOR Not Available Start: 09-16-2023 End: 09-16-2023 ambulatory ERIC COLEHER Not Available Start: 09-07-2023 End: 09-07-2023 ambulatory JULIEN MARLA Not Available Start: 09-07-2023 End: 09-07-2023 ambulatory ERIC SOTOMAYOR Not Available Start: 07-28-2023 End: 07-29-2023 ambulatory JULIEN R MARLA [facility] Start: 03-17-2023 Office outpatient vi sit 15 minutes Ary Vee [facility] Start: 03-17-2023 End: 03-17-2023 ambulatory BUZZSAW OPERATOR HELPER Ary Mariusz Work Phone: [facility] Work Phone: Start: 03-17-2023 End: 03-17-2023 Patient encounter procedure BUZZSAW OPERATOR HELPER Ary Mariusz Work Phone: [facility] Work Phone: Start: 12-25-2020 Office outpatient vi sit 15 minutes Elizabeth Lema [facility] Start: 06-19-2020 End: 06-19-2020 Patient encounter procedure NIECY RENEE Facility:[facility] Start: 11-27-2019 End: 11-27-2019 Patient encounter procedure CAMILLE VALENCIA Facility: Start: 12-15-2016 End: 12-15-2016 Emergency department patient visit SR DAVE Sibley [facility] Procedures Date Procedure Procedure Detail Performing Clinician Start: 07-21-2024 Colonoscopy PHYSICIAN NO FAMILY Start: 03-17-2023 Plain X-ray of right wrist BUZZSAW OPERATOR HELPER Ary Marieb Work Phone: Start: 12-15-2016 APPLY ICE TO AFFECTED AREA SR HOUSE Plan of Treatment Date Care Activity Detail Author Start: 02-17-2025 Adult BMI Screening Adult BMI Screen ing [facility] [place] [facility] Start: 02-17-2025 Tobacco Screening Tobacco Screening [facility] [place] [facility] Start: 12-07-2024 End: 12-07-2024 Professional / ancillary services management 12/07/2024 11:00 AM EDT Ancillary Procedure [facility]LE TOTH [address] [place] [address] [place] [address] KEKES Lorna OBMURRAY Start: 11-23-2024 End: 05-23-2025 US Pelvis US Pelvis w/ TV Imaging Routine Well woman exam with routine gynecological exam Pelvic pain in female Irregular menses Expected: 11/23/2024, Expires: 05/23/2025 [facility] Comment on above: Expected: 11/23/2024 , Expires: 05/23/2025 Start: 11-09-2024 End: 11-09-2024 Patient encounter procedure 11/09/2024 9:00 AM EDT Office Visit [facility] [address] [place] [id number] Eric Sotomayor DPM [address] [facility] [address] [facility] Start: 08-09-2024 End: 08-09-2024 Patient encounter procedure 08/09/2024 8:45 AM EDT Office Visit [facility] [address] [place] [phone] Eric Sotomayor DPM [address] [place] [address] [facility] Start: 07-25-2024 End: 07-25-2024 ambulatory 07/25/2024 9:00 AM EDT Evaluation [facility] [address] [place] [address] Micah Bledsoe, PT [address] [place] [address] [facility] Start: 07-21-2024 [facility] Start: 07-08-2024 End: 07-08-2024 Patient encounter procedure 07/08/2024 10:15 AM EDT Office Visit [facility] [address] [place] [address] Eric Sotomayor DPM [address] [place] [address] Arrived [facility] Comment on above: Arrived Start: 06-28-2024 End: 06-28-2024 Patient encounter procedure [facility] Comment on above: Arrived Start: 06-08-2024 End: 06-08-2024 Patient encounter procedure 06/08/2024 11:00 AM EDT Office Visit [facility] [address] [place] [address] Eric Sotomayor DPM [address] [place] [address] [facility] Start: 05-25-2024 End: 05-25-2024 Patient encounter procedure 05/25/2024 11:00 AM EDT Office Visit [facility] [address] [place] [address] Eric Sotomayor DPM [address] [place] [address] [facility] Start: 05-12-2024 End: 05-12-2024 Admission to same day surgery center 05/12/2024 7:30 AM EST - 05/12/2024 8:30 AM EST Surgery [facility] - Surgery [address] [place] [address] Eric Sotomayor DPM [address] [place], [place] [id number] FASCIOTOMY PLANTAR FOOT microfasciotomy [23228 (CPT )] [facility] Comment on above: FASCIOTOMY PLANTAR F OOT microfasciotomy [40890 (CPT )] Start: 05-12-2024 End: 05-12-2024 Fasciotomy foot&/toe FASCIOTOMY PLANTAR FOOT right plantar fasciitis, equinus contracture 05/12/2024 7:30 AM EST [facility] Start: 05-12-2024 End: 05-12-2024 Gastrocnemius recession REPAIR MUSCLE RECESSION GASTROCNEMIUS right plantar fasciitis, equinus contracture 05/12/2024 7:30 AM EST [facility] Start: 05-12-2024 Subsequent hospital visit by physician 05/12/2024 7:30 AM EST Hospital Encounter [facility] Surgery [address] [place] [address] Eric Sotomayor DPM [address] [place], [place] [phone] [facility] Start: 05-02-2024 End: 05-02-2024 Patient encounter procedure 05/02/2024 11:00 AM EST Office Visit [facility] [address] [place] [phone] Eric Sotomayor DPM [address] [place] [address] Arrived [facility] Comment on above: Arrived Start: 11-08-2023 Influenza vaccination Influenza Vacc ine [facility] [place] [facility] Start: 11-04-2023 End: 11-04-2023 Patient encounter procedure 11/04/2023 8:30 AM EDT Office Visit [facility] [address] [place] [phone] Andrea Sotomayor, DPM [address] [place], [place] [id number] Arrived [facility] Comment on above: Arrived Start: 2014 Screening for malign ant neoplasm of cervix Pap Smear [facility] [place] [facility] Start: 2012 DTaP,Tdap and Td Vac cines (1 - Tdap) DTaP,Tdap and Td Vaccines (1 - Tdap) [facility] Start: 2011 Adult BMI Follow Up Plan Adult BMI F ollow Up Plan [facility] [place] [facility] Start: 2011 Diabetic foot examination Diabetic F oot Exam [facility] [place] [facility] Start: 2005 Depression Screening Depression Scre ening [facility] Start: 1993 Glaucoma screening Diabetic Op hthalmology Exam [facility] Start: 1993 Urine screening for protein Urine Microalbumin [facility] Cytology Cervical or vaginal smear or scraping study Pap Smear Pathology and Cytology Routine Well woman exam with routine gynecological exam Ordered: 11/23/2024 [facility] Work Phone: Comment on above: Ordered: 11/23/2024 Human papilloma viru s DNA [Presence] in Unspecified specimen by Probe with amplification HPV DNA probe, amplified Microbiology Routine Well woman exam with routine gynecological exam Ordered: 11/23/2024 [facility] Comment on above: Ordered: 11/23/2024 MR Foot - right WO contrast MR foot right wo IV contrast Imaging Routine Rupture of muscle, nontraumatic Stress fracture of right calcaneus Ordered: 06/28/2024 [facility] Work Phone: Comment on above: Ordered: 06/28/2024 Patient Education [facility]: Payers Date Payer Category Payer Self-pay 2022 Medicaid [id number] 2016 Medicaid [id number] 1993 Unknown [id number] 2.16.84 [id number] 1993 Unknown [id number] 2.16.84 [id number] 1993 Unknown [id number] 2.16.8 [id number] 1993 Unknown [id number] 2.16.84 [id number] 1993 Unknown [id number] 2.16.84 [id number] 1993 Unknown [id number] 2.16.84 [id number] 1993 Unknown [id number] 2.16.84 [id number] 1993 Unknown [id number] 2.16.84 [id number] 1993 Unknown [id number] 2.16.84 [id number] 1993 Unknown [id number] 2.16.84 0.1.282688.3.579.2.1259 1995 Unknown [id number] 2.16.84 0.1.423314.3.579.2.1259 1993 Unknown [id number] 2.16.84 0.1.947848.3.579.2.1259 1993 Unknown [id number] 2.16.84 0.1.545409.3.579.2.1259 1993 Unknown [id number] 2.16.84 0.1.653101.3.579.2.9 1993 Unknown [id number] 2.16.84 0.1.586201.3.579.2.1259 1993 Unknown [id number] 2.16. 840.1.194239.3.579.2.1286 1993 Unknown [id number] 2.16. 840.1.054340.3.579.2.1285 1993 Unknown [id number] 2.16. 840.1.349263.3.579.2.128 1993 Unknown [id number] 2.16. 840.1.190820.3.579.2.1285 1993 Unknown [id number] 2.16. 840.1.121420.3.579.2.128 1993 Unknown [id number] 2.16. 840.1.524197.3.579.2.1285 1993 Unknown [id number] 2.16. 840.1.127380.3.579.2.1285 1993 Unknown [id number] 2.16. 840.1.455253.3.579.2.1285 1993 Unknown [id number] 2.16.8 40.1.277815.3.579.2.128 1993 Unknown [id number] 2.16.8 40.1.528779.3.579.2.1285 1993 Unknown [id number] 2.16.8 40.1.655968.3.579.2.1285 1993 Unknown [id number] 2.16.8 40.1.869808.3.579.2.1285 1993 Unknown [id number] 2.16. 840.1.058451.3.579.2.1286 1959 Unknown [id number] Unknown [id number] 2.1 6.840.1.290226.19 Unknown [id number] 2.16.8 40.1.457541.3.579.2.531 Social History Date Type Detail Facility Start: 11-19-2023 End: 11-23-2024 Sex Assigned At [facility] Start: 1995 Sex Assigned At Female [facility] Start: 12-23-2022 Tobacco smoking stat us NJIS Never smoked tobacco [facility] Start: 12-23-2022 End: 05-02-2024 Tobacco use and exposure Smokeless tobacco non-user [facility] Start: 11-19-2023 End: 11-23-2024 Alcoholic beverage intake Lifetime non-drinker (finding) [facility] Start: 11-19-2023 End: 11-23-2024 History of Social function [facility] Start: 1995 Sex assigned at Not on file [facility] Start: 12-22-2022 Gender identity Identifies as female gender (finding) [facility] Start: 05-02-2024 End: 07-21-2024 Tobacco smoking status [facility] Ex-smoker [facility] Start: 04-22-2008 End: 04-22-2018 History of tobacco use Current smoker [facility] Start: 04-22-2008 End: 04-22-2018 History of tobacco use Cigarette Smoker [facility] Start: 05-02-2024 Alcoholic beverage intake Current non-drinker of alcohol (finding) [facility] Childcare Unknown [facility] Start: 10-12-2014 End: 07-21-2024 Sex Female (finding) [facility] tem Goals Date Patient Goal Desired Activity /State Clinical Notes 12-25-2020 to 11-23-2024 ALEXA Ocasio - 11/23/2024 2:30 PM Marysol Sotomayor DPM - 08/09/2024 8:45 AM EDT Note Date & Type Note Facility 11-23-2024 History of Presen t illness Narrative Reason for Appointment: Patient ID: Mirna Barrios [...] Past Medical History: Diagnosis Date Clotting disorder ([facility]HS-HCC) 07/01/23 HISTORY PAST MEDICAL HISTORY SOCIAL HISTORY Past Medical History: Diagnosis Date Clotting disorder ([facility]HS-HCC) 07/01/23 Social History Tobacco Use Smoking status: [...] nursing note reviewed. Exam conducted with a space systems operations superintendent present. Vitals: Estimated body mass index is 39.69 kg/m as calculated from the following: Height as [...] them. Patient can also view results via [employer]. I reinforced importance of condom use for [...] of: ALEXA Ocasio documented in this encounter [facility] 08-09-2024 History of Presen t illness Narrative Images from the original note were not included. Subjective Patient ID: Mirna Barrios is a 29 y.o. female who presents for Follow-up (Pt is here today for 1mo FUV plantar fasciitis, pain has not changed. Some days pain is worse, it will wake her up all night/SS: 6.5). HPI Date of surgery 05/12/2024 [place] micro fasciotomy of the right plantar fascia with the injection of human derived allograft tissue Patient presents to clinic postoperatively. She has a proximally 3 months out from the above-mentioned surgery. She received a cortisone injection about a month ago and a Medrol Dosepak a couple of weeks later. She does note some mild improvement. She continues to have stabbing pains that wake her up at night. Pain is mostly present after long periods of walking and standing. She is on her feet quite significantly. Review of Systems Constitutional: Positive for activity change. Negative for appetite change. Respiratory: Negative for chest tightness and shortness of breath. Cardiovascular: Negative for chest pain. Musculoskeletal: Positive for arthralgias and gait problem. Skin: Negative for color change and wound. Neurological: Negative for weakness and numbness. Psychiatric/Behavioral: Negative for agitation and behavioral problems. Hematological: Does not bruise/bleed easily. Endocrine: Negative for cold intolerance and heat intolerance. Allergic/Immunologic: Negative for immunocompromised state. Medications Current Outpatient Medications: acetaminophen (Tylenol) 500 MG tablet, Take by mouth, Disp: , Rfl: cyclobenzaprine (Flexeril) 10 MG tablet, 10 mg, Disp: , Rfl: topiramate (Topamax) 25 MG tablet, , Disp: , Rfl: predniSONE (Deltasone) 10 MG tablet, Take twice daily for 5 days, then take once daily for 5 days., Disp: 15 tablet, Rfl: 0 Allergies Patient has no known allergies. Past Surgical History History reviewed. No pertinent surgical history. Family History Family History Problem Relation Name Age of Onset Throat cancer Mother Crohn's disease Brother Objective Physical Exam Constitutional: Appearance: She is obese. Comments: Presents to clinic ambulating unassisted in tennis shoes. Unaccompanied. HENT: Head: Normocephalic and atraumatic. Cardiovascular: Pulses: Normal pulses. Pulmonary: Effort: Pulmonary effort is normal. No respiratory distress. Abdominal: Palpations: There is no mass. Musculoskeletal: Cervical back: No rigidity. Comments: Right foot: Today there is some very mild tenderness to palpation along the medial calcaneal tubercle however it seems to be much improved compared to last visit. Negative heel squeeze test. No tenderness to compression of the calf. Negative Homans test. Muscle strength 5/5 for all quadrants. Negative Tinel sign with percussion of the tibial nerve. Skin: Capillary Refill: Capillary refill takes less than 2 seconds. Findings: No lesion or rash. Neurological: Mental Status: She is alert. Comments: No loss of protective sensation, gross sensation intact. Psychiatric: Mood and Affect: Mood normal. Behavior: Behavior normal. Assessment/Plan ICD-10-CM 1. S/P foot surgery Z98.890 2. Plantar fasciitis M72.2 predniSONE (Deltasone) 10 MG tablet Ambulatory referral to Physical Therapy 3. Equinus contracture of right ankle M24.571 Ambulatory referral to Physical Therapy Patient examined and evaluated. She does seem to be making very slow improvement. She does continue to have pain on a daily basis mostly aggravated with heavy activity and prolonged work. Based on her improvement I do not recommend moving forward with a 2nd surgery especially given the risk of the iatrogenic pes planus morphology following open plantar fasciotomy. Discussed options today including another cortisone injection but patient elects to move forward with oral steroid route. Oral steroid taper was sent to her pharmacy. Still recommend formalized physical therapy focusing on range of motion, stretching exercises. Patient elects to do this at PT services here in [place]. Prescription sent there. Follow up in 3 months for a six-month postop check. Discussed that at that point if she is still having significant issues we may have to consider plantar fasciotomy but I would prefer to avoid it. This note was created with the assistance of a speech recognition program. While intending to generate a timely document that accurately reflects the content of the visit, no guarantee can be provided that every grammatical or spelling mistake has been or will be identified or corrected. Thank you for your understanding. Eric Sotomayor DPM documented in this encounter [facility] 07-21-2024 History and physical note Note Date/Time July 21, 2024 11:00 am [facility] [address] [place] [address] Gastroenterology H&P Signed Patient: Mirna Barrios MR#: [id number] : 1995 Acct:[id number] Age/Sex: 29 / F Adm Date: 5 Loc: Room: Type: [facility] Attending Dr: Marce Barnes DO Copies to: Marce Barnes DO NO FAMILY PHYSICIAN~ Date of Service: 07/21/2024 HISTORY & PHYSICAL: Patient's history with special attention to the cardiovascular, pulmonary systems and the current problem was reviewed with the patient immediately prior to the procedure. Present medications and doses reviewed in the EMR. Allergies and pertinent laboratory tests were also reviewedat this time in the EMR. The physical examination, as below, was then performed. Indication, assessment and HPI: 29-year-old female who presents for colonoscopy for constipation, family history of Crohn's disease in her brother. No prior colonoscopy. Family history of GI malignancy? None PHYSICAL EXAMINATION General appearance: cooperative, NAD Skin: No jaundice, no rash or lesions Head: NCAT Eyes: Anicteric Neck: Supple Lungs: Normal respiratory effort, no use of accessory muscles Abdomen: Soft, nondistended Neuro: No focal deficits, Ox3. REVIEW OF SYSTEMS Constitutional: Denies malaise, fevers Cardiovascular: Denies chest pain, palpitations Respiratory: Denies shortness of breath, wheezing Gastrointestinal: As per HPI Genitourinary: Denies dysuria, polyuria Musculoskeletal: Denies joint swelling, joint stiffness Neurological: Denies confusion, numbness, tingling Endocrine: Denies fatigue Written informed consent obtained from the patient. Risks (including but not limited to perforation, infection, bloating, bleeding, need for emergent surgeryand loss of life), benefits and alternatives explained and questions answered. The patient verbalized understanding. Based on history patient is an appropriate candidate for the procedure. Marce Barnes DO Present medication and doses reviewed in the EMR Documented By: Marce Barnes DO 07/21/24 1059 Signed By: <Electronically signed by Marce Barnes DO> 07/21/[address] [place] [address] Work Phone: 1(296) 460-645005-15-2025 [place] [id number] Colonoscopy Procedure Report Signed Patient: Mirna Barrios MR#: [id number] : 1995 Acct:[id number] Age/Sex: 29 / F Adm Date: 5 Loc: Room: Type: [facility] Attending Dr: Marce Barnes DO Copies to: Marce Barnes DO NO FAMILY PHYSICIAN~ Colonoscopy Date/Provider 07/21/2024 Marce Barnes DO Narrative Procedure: Colonoscopy Indication: Constipation, family history of Crohn's disease. No prior colonoscopy Pre-operative diagnosis: Constipation, family history of Crohn's disease Post-operative diagnosis: small internal hemorrhoids, otherwise normal colon andTI Sedation: propofol per anesthesia dept O2 oximetry, hemodynamic monitoring was performed pre, during, and post procedure. Patient was identified, H&P completed, patient was given full explanation of the procedure as well as associatedrisks and written consent wasobtained prior to procedure. Patient expressed complete understanding of the procedure as well as alternatives to the procedure and to anesthesia and agreed to proceed with the procedure as indicated. Patient was immediately reassessed prior to IV sedation. Under IV sedation, patient was placed in the left lateral decubitus position. Digital rectal exam was performed and normal. Colonoscope was inserted and passed proximally to the cecum, which was identified by the ileocecal valve, appendiceal orifice and cecal floor. The terminal ileum was intubatedand examined. Colonoscope was slowly withdrawn with the findings as below. [place] bowel prep score was adequate. Findings: Terminal ileum: Normal Cecum: Normal. Ascending colon: Normal. Hepatic flexure: Normal. Transverse colon: Normal. Splenic flexure: Normal. Descending colon: Normal. Sigmoid colon: Normal. Rectum: Normal. Retroflexed views: Rectum did show small internal hemorrhoids. Biopsy taken: None Complications: None EBL: None Recommendations: -Repeat colonoscopy at 43 years for screening purposes -Continue bowel regimen -Fiber rich diet increase water intake -Follow up in the office 3 to 4 months -Follow up with PCP Following a period of recovery, patient was seen and given full explanation of the procedure. Patient tolerated the procedure well and will be discharged in satisfactory, stable condition. Marce Barnes DO Documented By: Marce Barnes DO 07/21/24 1100 Signed By: 07/21/24 1202 [facility]05-15-2025 [place] [address] Gastroenterology H&P Signed Patient: Mirna Barrios MR#: [id number] : 1995 Acct:[id number] Age/Sex: 29 / F Adm Date: 5 Loc: Room: Type: [facility] Attending Dr: Marce Barnes DO Copies to: Marce Barnes DO NO FAMILY PHYSICIAN~ Date of Service: 07/21/2024 HISTORY & PHYSICAL: Patient's history with special attention to the cardiovascular, pulmonary systems and the current problem was reviewed with the patient immediately prior to the procedure. Present medications and doses reviewed in the EMR. Allergies and pertinent laboratory tests were also re viewedat this time in the EMR. The physical examination, as below, was then performed. Indication, assessment and HPI: 29-year-old female who presents for colonoscopy for constipation, family history of Crohn's disease in her brother. No prior colonoscopy. Family history of GI malignancy? None PHYSICAL EXAMINATION General appearance: cooperative, NAD Skin: No jaundice, no rash or lesions Head: NCAT Eyes: Anicteric Neck: Supple Lungs: Normal respiratory effort, no use of accessory muscles Abdomen: Soft, nondistended Neuro: No focal deficits, Ox3. REVIEW OF SYSTEMS Constitutional: Denies malaise, fevers Cardiovascular: Denies chest pain, palpitations Respiratory: Denies shortness of breath, wheezing Gastrointestinal: As per HPI Genitourinary: Denies dysuria, polyuria Musculoskeletal: Denies joint swelling, joint stiffness Neurological: Denies confusion, numbness, tingling Endocrine: Denies fatigue Written informed consent obtained from the patient. Risks (including but not limited to perforation, infection, bloating, bleeding, need for emergent surgeryand loss of life), benefits and alternatives explained and questions answered. The patient verbalized understanding. Based on history patient is an appropriate candidate for the procedure. Marce Barnes DO Present medication and doses reviewed in the EMR Documented By: Marce Barnes DO 07/21/24 1059 Signed By: 07/21/[address] [place], [place] 2101705-14-2025 Telephone encounter Note* Telephone Encounter - Eric Sotomayor DPM - 07/20/2024 4:40 PM EDT New referral sent to PT services. Medrol Dosepak sent to her pharmacy. Thank you Waylon. [id number] Miscellaneous Notes* Telephone Encounter - Eric Sotomayor DPM - 07/20/2024 4:40 PM EDT New referral sent to PT services. Medrol Dosepak sent to her pharmacy. Thank you Walyon. * Telephone Encounter - Dayanara Gallegos MA - 07/20/2024 1:01 PM EDT Patient called back after talking with team at [facility] where she is scheduled to have colonoscopy tomorrow stating that her doctor said she could have any medication as long as it was noton the list that she provide (sent through [employer]). * Telephone Encounter - Eric Sotomayor DPM - 07/20/2024 10:35 AM EDT Thank you Waylon. I sent the referral over to [facility]. In regards to taking anything before her colonoscopy I would recommend checking with her surgeon. She may have to wait until after the colonoscopy and then I would send in an oral steroid taper. Thank you. * Telephone Encounter - Waylon Jacinto - 07/20/2024 8:30 AM EDT Patient left a voice message this morning stating that Micah Bledsoe never received her referral forPT if you could send one over. Patient also stated that she is having a bad day with pain and that it felt like something popped at 3am this morning. She says that she is taking 1500mg of tylenol(?) but she is requesting something else. Patient mentioned that she does have a colonoscopy tomorrow, so if you could call something in that won't interfere with that (she is on a liquid diet). documented [id number] Telephone encounter Note* Telephone Encounter - Dayanara Gallegos MA - 07/20/2024 1:01 PM EDT Patient called back after talking with team at [facility] where she is scheduled to have colonoscopy tomorrow stating that her doctor said she could have any medication as long as it was noton the list that she provide (sent through [employer]). [id number] Telephone encounter Note* Telephone Encounter - Eric Sotomayor DPM - 07/20/2024 10:35 AM EDT Thank you Waylon. I sent the referral over to [facility]. In regards to taking anything before her colonoscopy I would recommend checking with her surgeon. She may have to wait until after the colonoscopy and then I would send in an oral steroid taper. Thank you. [id number] Telephone encounter Note* Telephone Encounter - Waylon Jacinto - 07/20/2024 8:30 AM EDT Patient left a voice message this morning stating that [facility] never received her referral forPT if you could send one over. Patient also stated that she is having a bad day with pain and that it felt like something popped at 3am this morning. She says that she is taking 1500mg of tylenol(?) but she is requesting something else. Patient mentioned that she does have a colonoscopy tomorrow, so if you could call something in that won't interfere with that (she is on a liquid diet). [facility] [id number] History of Present illness Narrative* Eric Sotomayor DPM - 07/08/2024 10:15 AM EDT Images from the original note were not included. Subjective Patient ID: Mirna Barrios is a 29 y.o. female who presents for Follow-up (Established pt presentstoday to review MRI results. Pt is still having significant pain in right foot. SS: 6). HPI Date of surgery 05/12/2024 [place] micro fasciotomy of the right plantar fascia with the injection ofhuman derived allograft tissue Established patient returns to clinic to review MRI of the right foot. She is almost 2 months out from the above-mentioned procedure. Initially she was doing very well without any issues or concerns.As she transition back into her regular tennis shoe she started experiencing severe pain along the inferior calcaneus along the medial calcaneal tubercle. I obtained an MRI and she is here today to discuss these results. She continues to have severe pain daily. She is in tears in our office today. Review of Systems Constitutional: Positive for activity change. Negative for appetite change. Respiratory: Negative for chest tightness and shortness of breath. Cardiovascular: Negative for chest pain. Musculoskeletal: Positive for arthralgias and gait problem. Skin: Negative for color change and wound. Neurological: Negative for weakness and numbness. Psychiatric/Behavioral: Negative for agitation and behavioral problems. Hematological: Does not bruise/bleed easily. Endocrine: Negative for cold intolerance and heat intolerance. Allergic/Immunologic: Negative for immunocompromised state. Medications Current Outpatient Medications: acetaminophen (Tylenol) 500 MG tablet, Take by mouth, Disp: , Rfl: cyclobenzaprine (Flexeril) 10 MG tablet, 10 mg, Disp: , Rfl: topiramate (Topamax) 25 MG tablet, , Disp: , Rfl: No current facility-administered medications for this visit. Allergies Patient has no known allergies. Past Surgical History History reviewed. No pertinent surgical history. Family History Family History Problem Relation Name Age of Onset Throat cancer Mother Crohn's disease Brother Objective Physical Exam Constitutional: Appearance: She is obese. Comments: Presents to clinic ambulating unassisted in tennis shoes. Unaccompanied. HENT: Head: Normocephalic and atraumatic. Cardiovascular: Pulses: Normal pulses. Pulmonary: Effort: Pulmonary effort is normal. No respiratory distress. Abdominal: Palpations: There is no mass. Musculoskeletal: Cervical back: No rigidity. Comments: Right foot: There is continued tenderness to palpation along the plantar fascia at the medial calcaneal tubercle. Positive heel squeeze test. No tenderness to compression of the calf. Negative Homans test. Muscle strength 5/5 for all quadrants. Negative Tinel sign with percussion of the tibial nerve. Skin: Capillary Refill: Capillary refill takes less than 2 seconds. Findings: No lesion or rash. Neurological: Mental Status: She is alert. Comments: No loss of protective sensation, gross sensation intact. Psychiatric: Mood and Affect: Mood normal. Behavior: Behavior normal. Assessment/Plan ICD-10-CM 1. Plantar fasciitis M72.2 betamethasone acetate-betamethasone sodium phosphate (Celestone) injection 3 mg triamcinolone acetonide (Kenalog-40) injection 20 mg 2. Right foot pain M79.671 3. S/P foot surgery Z98.890 Patient examined and evaluated. Personally reviewed her MRI findings. There is less edema compared to her MRI from a year ago. However there is significantly increased thickening of the plantar fascia compared to her MRI from a year ago. There was also some concern for small tears of the fascia which are likely the result of the micro fasciotomies which I created at the time of surgery. The fact that she has less edema is very encouraging and I certainly do not see any signs of the calcaneal stress fracture. At this time due to her symptomatology I recommend cortisone injection to the medial calcaneal tubercle. Additionally I recommend physical therapy for range of motion, strengthening exercises as well as desensitization. Informed consent was obtained. Utilizing aseptic technique I injected 1 mL of 0.5 percent Marcaine plain, 20 mg of Kenalog and 3 mg of Celestone to the medial calcaneal tubercle, right foot. Patient tolerated the procedure well and a band-aid was applied over the injection site. I have recommended 2 Tylenol and 2 Advil every 8 hours as needed for the next day to h elp reduce any steroid flare reaction. Referral to [facility] here in [place] for physical therapy. Follow up 1 month. I did discuss open fasciotomy but would prefer to avoid this if possible to reduce therisk of the iatrogenic planovalgus deformity. This note was created with the assistance of a speech recognition program. While intending to generate a timely document that accurately reflects the content of the visit, no guarantee can be provided that every grammatical or spelling mistake has been or will be identified or corrected. Thank you for your understanding. Eric Sotomayor DPM documented in this encounterSt[facility] [id number] History of Present illness Narrative* Eric Sotomayor DPM - 06/28/2024 9:00 AM EDT Images from the original note were not included. Subjective Patient ID: Mirna Barrios is a 29 y.o. female who presents for Follow-up (PT is here today for a 1mo post op visit. She states she is taking tylenol all day everyday, she feels like the pain is worse than before surgery. Shooting pains, very stiff. Pain started after she stopped wearing the camwalker/SS: 6). HPI Date of surgery 05/12/2024 [place] micro fasciotomy of the right plantar fascia with the injection ofhuman derived allograft tissue Patient presents to clinic postoperatively. Patient states that she is doing worse than before surgery. She states that her pain is different now. She describes lightening bolt sensations in the heelthat she describes as all day every day. She states that her calf feels very tight and she has noticed swelling near the inside of the heel. Patient in tears during today's visit. Review of Systems Constitutional: Positive for activity change. Negative for appetite change. Respiratory: Negative for chest tightness and shortness of breath. Cardiovascular: Negative for chest pain. Musculoskeletal: Positive for arthralgias and gait problem. Skin: Negative for color change and wound. Neurological: Negative for weakness and numbness. Psychiatric/Behavioral: Negative for agitation and behavioral problems. Hematological: Does not bruise/bleed easily. Endocrine: Negative for cold intolerance and heat intolerance. Allergic/Immunologic: Negative for immunocompromised state. Medications Current Outpatient Medications: acetaminophen (Tylenol) 500 MG tablet, Take by mouth, Disp: , Rfl: topiramate (Topamax) 25 MG tablet, , Disp: , Rfl: Allergies Patient has no known allergies. Past Surgical History No past surgical history on file. Family History Family History Problem Relation Name Age of Onset Throat cancer Mother Crohn's disease Brother Objective Physical Exam Constitutional: Appearance: She is obese. Comments: Presents to clinic ambulating unassisted in tennis shoes. Unaccompanied. HENT: Head: Normocephalic and atraumatic. Cardiovascular: Pulses: Normal pulses. Pulmonary: Effort: Pulmonary effort is normal. No respiratory distress. Abdominal: Palpations: There is no mass. Musculoskeletal: Cervical back: No rigidity. Comments: Right foot: There is continued tenderness to palpation along the plantar fascia at the medial calcaneal tubercle. Negative heel squeeze test. No tenderness to compression of the calf. Negative Homans test. Muscle strength 5/5 for all quadrants. Negative Tinel sign with percussion of the tibial nerve. Skin: Capillary Refill: Capillary refill takes less than 2 seconds. Findings: No lesion or rash. Neurological: Mental Status: She is alert. Comments: No loss of protective sensation, gross sensation intact. Psychiatric: Mood and Affect: Mood normal. Behavior: Behavior normal. Assessment/Plan ICD-10-CM 1. Rupture of muscle, nontraumatic M62.10 MR foot right wo IV contrast 2. Stress fracture of right calcaneus M84.374A MR foot right wo IV contrast 3. Plantar fasciitis M72.2 4. Right foot pain M79.671 Patient examined and evaluated. Unfortunately she feels like she has regressed even compared to before surgery. She states that her pain is worse before surgery and describes it as lightening bolt sensations in the heel. Additionally she describes sensations of her foot not wanting to move. At thistime I recommend MRI of the right foot to evaluate for possible stress fracture, possible plantar fascial tear or other occult pathology. Follow up after MRI. This note was created with the assistance of a speech recognition program. While intending to generate a timely document that accurately reflects the content of the visit, no guarantee can be provided that every grammatical or spelling mistake has been or will be identified or corrected. Thank you for your understanding. Eric Sotomayor DPM documented in this encounterSt. Lukes Des Peres [id number] Evaluation note* Diagnosis Onset Date Resolution Status Admit Date IBS (irritable bowel syndrome) acute June 24, 2024 9:53am [facility] Work Phone: [phone]) 743-805202-24-2025 Instructions* Patient Instructions* Connie Stafford RN - 05/02/2024 12:45 PM EST Preoperative Education Checklist- General Surgery date: 05/12/24 Surgery time: 0730 a.m. Arrival time: 0610 a.m. 1. Bring a photo ID and your insurance card with you the day of surgery. You will check in at the main lobby of the [facility]- registration desk is straight ahead as soon as you walk in. Tell them you are here for surgery. 2. If you have a Living Will/Durable Power of Senior [employer] Turb[employer]ician for Health Care that is not on file here, please bring a copy the day of surgery. 3. Please shower/bathe the night before surgery with the provided soap or wipes. Do not shower the morning of surgery- you will do use wipes when you arrive here at the hospital before getting into your surgical gown. Do not shave the area of your procedure for 2 days prior to your surgery. 4. NO powder, lotion, perfume/cologne, aftershave, make-up, deodorant, or hair products after you have bathed. 5. NO nail bruneian/acrylic on at least one finger. If you are having a hand, wrist or foot surgery then all nail bruneian and artificial/acrylic nails must be removed from that hand or foot. 6. Avoid ALL Aspirin and non-steroidal anti-inflammatory drugs and certain vitamins (Ibuprofen, Advil, Aleve, Excedrin, Meloxicam, Celebrex, fish/krill oil, etc.) for 7 days prior to surgery as instructed by your surgeon and/or your prescribing doctor. Tylenol IS ALLOWED. If you are on Ticlid, Xarelto, Eliquis, Pradaxa, Plavix or Coumadin, please check with your prescribing doctor for instructions for when to stop them. 7. If you use an inhaler, continue to use it routinely. 8. Nothing to eat or drink (not even water, gum, mints, or hard candy!) AFTER midnight prior to your surgery. 9. Take only medications that you are instructed to on the morning of surgery with a TINY SIP OF WATER. 10. Choose a responsible adult that will be able to drive you home when you are discharged from your hospital stay for your surgery and can stay with you in your home for 24 hours after your procedure. You must NOT drive any vehicle or operate any machinery for 24 hours after surgery. 11. When you dress for your appointment, please wear loose fitting clothing that is appropriate to accommodate your surgical area procedure. BRING WITH YOU ANY DEVICES YOU MAY NEED: SAMARA hose, ice machine, sling/swath, brace or special shoe, oversized zip-up or button up shirt, CPAP machine if staying overnight. 12. Do NOT wear jewelry, watches, or any piercings or metal for surgery- leave these valuables and money at home. 13. Do NOT wear contact lenses for surgery- glasses are okay if needed. 14. The anesthesiologist will talk with you the day of surgery and will ask you to sign a Consent Form. 15. Refrain from smoking or any type of tobacco use for at least 8 hours and marijuana for 24 hoursprior to arrival for your surgery. 16. If a GREEN BLOOD band is given to you, please bring it with you for the day of surgery. 17. Notify your surgeon if you develop any illness before your surgery. 18. If you are staying overnight, please DO NOT BRING your home medications with you. 19. If you have any questions prior to surgery, please call the Preadmission Testing office at [phone], Mon.-Fri. 7 a.m.-3 p.m. Leave a voicemail if needed. Pre-Surgery Instructions: Medication Instructions acetaminophen (TYLENOL) 325 mg tablet Stop taking 0 days prior to procedure cyclobenzaprine (FLEXERIL) 10 mg tablet Stop taking 0 days prior to procedure meloxicam (MOBIC) 15 mg tablet Stop taking 1 week prior to procedure sspaicfr-flmj-OR-calcium &mins (THERAGRAN-M) 9 mg iron-400 mcg tablet Stop taking 0 days prior to procedure topiramate (TOPAMAX) 25 mg capsule Stop taking 0 days prior to procedure How to Avoid an Infection after Your Surgery Your doctor will give you specific instructions, but remember: -ALWAYS wash hands before caring for your incision. -No picking, scratching, or rubbing your incision. -No creams, lotion, powder, rubbing alcohol or hydrogen peroxide on the incision (can harm the tissue and slow healing). -Your doctor will give you specific instructions for what type of dressing you will need and how often it will need changed for infection purposes. -No tight clothing on incision. -Do not allow anyone to touch your incision unless they are cleaning, checking, or redressing it (be sure they wash their hands first). -No contact of your incision with pets; avoid sleeping with pets. -Take full course of antibiotic if prescribed for you after surgery- do not stop unless directed liza your physician. You may also be given an antibiotic prior to your surgery to help prevent surgical site infections. -Eat a healthy and varied diet including proteins, fruits, and vegetables to help promote wound healing and keep blood sugars under control if you are diabetic. -Smoking slows the healing process by decreasing the amount of oxygen in your blood that is needed for tissue healing. Try to avoid or stop smoking if possible. LOOK at your incision each morning and each night to check the progress of healing. Some soreness, numbness, itching and/or mild bruising around the incision is normal. Call your doctor if you noticeany of the following: -Increased redness or hardening around the incision area. -Increased pain at the incision site. -Incision feels hot to the touch. -Swelling or pulling apart of the incision edges. -Yellow or green drainage or foul odor coming from the incision. -Bleeding from the incision (apply pressure as needed). -Fever higher than 101 degrees Fahrenheit for more than 4 hours. SHOWERING: Your doctor will give you specific instructions, but remember: -Be careful getting into and out of the shower. -Showers should be quick (5 minutes or less). -Use a clean washcloth to gently wash your incision with soap and water and pat the area dry with aclean towel. -No re-using wash cloths or towels; get a fresh one to clean your incision. -Do not soak in the bathtub, go swimming or use a hot tub (Jacuzzi), or perform activities where your incision is submerged in water or exposed to any fluids or substances until instructed by your doctor. -If your have the sticky strips (steri-strips) over the incision, it is OK to shower with them. Do not remove them. Let them fall off on their own. If you have a question, call your doctor s office. Go to the follow-up appointment with your doctor. documented in this encounterCommunity Regional Medical CenterSparql City [facility] [id number] Miscellaneous Notes* Perioperative Nursing Note - Connie Stafford RN - 05/02/2024 12:45 PM EST Preoperative Education Checklist- General Surgery date: 05/12/24 Surgery time: 0730 a.m. Arrival time: 0610 a.m. 1. Bring a photo ID and your insurance card with you the day of surgery. You will check in at the main lobby of the [facility]- registration desk is straight ahead as soon as you walk in. Tell them you are here for surgery. 2. If you have a Living Will/Durable Power of Senior [employer] T[employer]ician for Health Care that is not on file here, please bring a copy the day of surgery. 3. Please shower/bathe the night before surgery with the provided soap or wipes. Do not shower the morning of surgery- you will do use wipes when you arrive here at the hospital before getting into your surgical gown. Do not shave the area of your procedure for 2 days prior to your surgery. 4. NO powder, lotion, perfume/cologne, aftershave, make-up, deodorant, or hair products after you have bathed. 5. NO nail bruneian/acrylic on at least one finger. If you are having a hand, wrist or foot surgery then all nail bruneian and artificial/acrylic nails must be removed from that hand or foot. 6. Avoid ALL Aspirin and non-steroidal anti-inflammatory drugs and certain vitamins (Ibuprofen, Advil, Aleve, Excedrin, Meloxicam, Celebrex, fish/krill oil, etc.) for 7 days prior to surgery as instructed by your surgeon and/or your prescribing doctor. Tylenol IS ALLOWED. If you are on Ticlid, Xarelto, Eliquis, Pradaxa, Plavix or Coumadin, please check with your prescribing doctor for instructions for when to stop them. 7. If you use an inhaler, continue to use it routinely. 8. Nothing to eat or drink (not even water, gum, mints, or hard candy!) AFTER midnight prior to your surgery. 9. Take only medications that you are instructed to on the morning of surgery with a TINY SIP OF WATER. 10. Choose a responsible adult that will be able to drive you home when you are discharged from your hospital stay for your surgery and can stay with you in your home for 24 hours after your procedure. You must NOT drive any vehicle or operate any machinery for 24 hours after surgery. 11. When you dress for your appointment, please wear loose fitting clothing that is appropriate to accommodate your surgical area procedure. BRING WITH YOU ANY DEVICES YOU MAY NEED: SAMARA hose, ice machine, sling/swath, brace or special shoe, oversized zip-up or button up shirt, CPAP machine if staying overnight. 12. Do NOT wear jewelry, watches, or any piercings or metal for surgery- leave these valuables and money at home. 13. Do NOT wear contact lenses for surgery- glasses are okay if needed. 14. The anesthesiologist will talk with you the day of surgery and will ask you to sign a Consent Form. 15. Refrain from smoking or any type of tobacco use for at least 8 hours and marijuana for 24 hoursprior to arrival for your surgery. 16. If a GREEN BLOOD band is given to you, please bring it with you for the day of surgery. 17. Notify your surgeon if you develop any illness before your surgery. 18. If you are staying overnight, please DO NOT BRING your home medications with you. 19. If you have any questions prior to surgery, please call the Preadmission Testing office at [phone], Mon.-Fri. 7 a.m.-3 p.m. Leave a voicemail if needed. Pre-Surgery Instructions: Medication Instructions acetaminophen (TYLENOL) 325 mg tablet Stop taking 0 days prior to procedure cyclobenzaprine (FLEXERIL) 10 mg tablet Stop taking 0 days prior to procedure meloxicam (MOBIC) 15 mg tablet Stop taking 1 week prior to procedure wiuqvari-zbsp-YC-calcium &mins (THERAGRAN-M) 9 mg iron-400 mcg tablet Stop taking 0 days prior to procedure topiramate (TOPAMAX) 25 mg capsule Stop taking 0 days prior to procedure How to Avoid an Infection after Your Surgery Your doctor will give you specific instructions, but remember: -ALWAYS wash hands before caring for your incision. -No picking, scratching, or rubbing your incision. -No creams, lotion, powder, rubbing alcohol or hydrogen peroxide on the incision (can harm the tissue and slow healing). -Your doctor will give you specific instructions for what type of dressing you will need and how often it will need changed for infection purposes. -No tight clothing on incision. -Do not allow anyone to touch your incision unless they are cleaning, checking, or redressing it (be sure they wash their hands first). -No contact of your incision with pets; avoid sleeping with pets. -Take full course of antibiotic if prescribed for you after surgery- do not stop unless directed liza your physician. You may also be given an antibiotic prior to your surgery to help prevent surgical site infections. -Eat a healthy and varied diet including proteins, fruits, and vegetables to help promote wound healing and keep blood sugars under control if you are diabetic. -Smoking slows the healing process by decreasing the amount of oxygen in your blood that is needed for tissue healing. Try to avoid or stop smoking if possible. LOOK at your incision each morning and each night to check the progress of healing. Some soreness, numbness, itching and/or mild bruising around the incision is normal. Call your doctor if you noticeany of the following: -Increased redness or hardening around the incision area. -Increased pain at the incision site. -Incision feels hot to the touch. -Swelling or pulling apart of the incision edges. -Yellow or green drainage or foul odor coming from the incision. -Bleeding from the incision (apply pressure as needed). -Fever higher than 101 degrees Fahrenheit for more than 4 hours. SHOWERING: Your doctor will give you specific instructions, but remember: -Be careful getting into and out of the shower. -Showers should be quick (5 minutes or less). -Use a clean washcloth to gently wash your incision with soap and water and pat the area dry with aclean towel. -No re-using wash cloths or towels; get a fresh one to clean your incision. -Do not soak in the bathtub, go swimming or use a hot tub (Jacuzzi), or perform activities where your incision is submerged in water or exposed to any fluids or substances until instructed by your doctor. -If your have the sticky strips (steri-strips) over the incision, it is OK to shower with them. Do not remove them. Let them fall off on their own. If you have a question, call your doctor s office. Go to the follow-up appointment with your doctor. * Perioperative Nursing Note - Connie Stafford RN - 05/02/2024 12:45 PM EST Hibiclens and surgical instructions reviewed. Patient verbalized understanding. [facility]* Perioperative Nursing Note - Connie Stafford RN - 05/02/2024 12:45 PM EST Preoperative Education Checklist- General Surgery date: 05/12/24 Surgery time: 0730 a.m. Arrival time: 0610 a.m. 1. Bring a photo ID and your insurance card with you the day of surgery. You will check in at the main lobby of the [facility]- registration desk is straight ahead as soon as you walk in. Tell them you are here for surgery. 2. If you have a Living Will/Durable Power of Senior Wind Turb[employer]ician for Health Care that is not on file here, please bring a copy the day of surgery. 3. Please shower/bathe the night before surgery with the provided soap or wipes. Do not shower the morning of surgery- you will do use wipes when you arrive here at the hospital before getting into your surgical gown. Do not shave the area of your procedure for 2 days prior to your surgery. 4. NO powder, lotion, perfume/cologne, aftershave, make-up, deodorant, or hair products after you have bathed. 5. NO nail bruneian/acrylic on at least one finger. If you are having a hand, wrist or foot surgery then all nail bruneian and artificial/acrylic nails must be removed from that hand or foot. 6. Avoid ALL Aspirin and non-steroidal anti-inflammatory drugs and certain vitamins (Ibuprofen, Advil, Aleve, Excedrin, Meloxicam, Celebrex, fish/krill oil, etc.) for 7 days prior to surgery as instructed by your surgeon and/or your prescribing doctor. Tylenol IS ALLOWED. If you are on Ticlid, Xarelto, Eliquis, Pradaxa, Plavix or Coumadin, please check with your prescribing doctor for instructions for when to stop them. 7. If you use an inhaler, continue to use it routinely. 8. Nothing to eat or drink (not even water, gum, mints, or hard candy!) AFTER midnight prior to your surgery. 9. Take only medications that you are instructed to on the morning of surgery with a TINY SIP OF WATER. 10. Choose a responsible adult that will be able to drive you home when you are discharged from your hospital stay for your surgery and can stay with you in your home for 24 hours after your procedure. You must NOT drive any vehicle or operate any machinery for 24 hours after surgery. 11. When you dress for your appointment, please wear loose fitting clothing that is appropriate to accommodate your surgical area procedure. BRING WITH YOU ANY DEVICES YOU MAY NEED: SAMARA hose, ice machine, sling/swath, brace or special shoe, oversized zip-up or button up shirt, CPAP machine if staying overnight. 12. Do NOT wear jewelry, watches, or any piercings or metal for surgery- leave these valuables and money at home. 13. Do NOT wear contact lenses for surgery- glasses are okay if needed. 14. The anesthesiologist will talk with you the day of surgery and will ask you to sign a Consent Form. 15. Refrain from smoking or any type of tobacco use for at least 8 hours and marijuana for 24 hoursprior to arrival for your surgery. 16. If a GREEN BLOOD band is given to you, please bring it with you for the day of surgery. 17. Notify your surgeon if you develop any illness before your surgery. 18. If you are staying overnight, please DO NOT BRING your home medications with you. 19. If you have any questions prior to surgery, please call the Preadmission Testing office at [phone], Mon.-Fri. 7 a.m.-3 p.m. Leave a voicemail if needed. Pre-Surgery Instructions: Medication Instructions acetaminophen (TYLENOL) 325 mg tablet Stop taking 0 days prior to procedure cyclobenzaprine (FLEXERIL) 10 mg tablet Stop taking 0 days prior to procedure meloxicam (MOBIC) 15 mg tablet Stop taking 1 week prior to procedure yfxbbwmx-coat-ZM-calcium &mins (THERAGRAN-M) 9 mg iron-400 mcg tablet Stop taking 0 days prior to procedure topiramate (TOPAMAX) 25 mg capsule Stop taking 0 days prior to procedure How to Avoid an Infection after Your Surgery Your doctor will give you specific instructions, but remember: -ALWAYS wash hands before caring for your incision. -No picking, scratching, or rubbing your incision. -No creams, lotion, powder, rubbing alcohol or hydrogen peroxide on the incision (can harm the tissue and slow healing). -Your doctor will give you specific instructions for what type of dressing you will need and how often it will need changed for infection purposes. -No tight clothing on incision. -Do not allow anyone to touch your incision unless they are cleaning, checking, or redressing it (be sure they wash their hands first). -No contact of your incision with pets; avoid sleeping with pets. -Take full course of antibiotic if prescribed for you after surgery- do not stop unless directed liza your physician. You may also be given an antibiotic prior to your surgery to help prevent surgical site infections. -Eat a healthy and varied diet including proteins, fruits, and vegetables to help promote wound healing and keep blood sugars under control if you are diabetic. -Smoking slows the healing process by decreasing the amount of oxygen in your blood that is needed for tissue healing. Try to avoid or stop smoking if possible. LOOK at your incision each morning and each night to check the progress of healing. Some soreness, numbness, itching and/or mild bruising around the incision is normal. Call your doctor if you noticeany of the following: -Increased redness or hardening around the incision area. -Increased pain at the incision site. -Incision feels hot to the touch. -Swelling or pulling apart of the incision edges. -Yellow or green drainage or foul odor coming from the incision. -Bleeding from the incision (apply pressure as needed). -Fever higher than 101 degrees Fahrenheit for more than 4 hours. SHOWERING: Your doctor will give you specific instructions, but remember: -Be careful getting into and out of the shower. -Showers should be quick (5 minutes or less). -Use a clean washcloth to gently wash your incision with soap and water and pat the area dry with aclean towel. -No re-using wash cloths or towels; get a fresh one to clean your incision. -Do not soak in the bathtub, go swimming or use a hot tub (Jacuzzi), or perform activities where your incision is submerged in water or exposed to any fluids or substances until instructed by your doctor. -If your have the sticky strips (steri-strips) over the incision, it is OK to shower with them. Do not remove them. Let them fall off on their own. If you have a question, call your doctor s office. Go to the follow-up appointment with your doctor. [facility]02-24-2025 Nurse Note* Perioperative Nursing Note - Connie Stafford RN - 05/02/2024 12:45 PM EST Hibiclens and surgical instructions reviewed. Patient verbalized understanding. [facility]02-24-2025 History of Present illness Narrative* Eric Sootmayor DPM - 05/02/2024 11:00 AM EST Images from the original note were not included. Subjective Patient ID: Mirna Barrios is a 29 y.o. female who presents for Consent and Instructions (Mirna Barrios is a 28 y.o. female who presents for Consent and Instructions for upcoming surgery scheduled05/12/2024.). HPI Established patient returns to clinic for consent and instructions regarding upcoming right foot surgery. I have been treating her for over a year for suspected plantar fasciitis of the right foot. She failed extensive conservative care measures including anti-inflammatories, injections, physical therapy exercises, shoe gear and activity modifications as well as orthotics. Despite these efforts she still has significant pain and disability. After discussing risks and benefits she elects to proceed with surgical treatment. Review of Systems Constitutional: Positive for activity change. Negative for appetite change. Respiratory: Negative for chest tightness and shortness of breath. Cardiovascular: Negative for chest pain. Endocrine: Negative for cold intolerance and heat intolerance. Musculoskeletal: Positive for arthralgias and gait problem. Skin: Negative for color change and wound. Allergic/Immunologic: Negative for immunocompromised state. Neurological: Negative for weakness and numbness. Hematological: Does not bruise/bleed easily. Psychiatric/Behavioral: Negative for agitation and behavioral problems. Medications Current Outpatient Medications: topiramate (Topamax) 25 MG tablet, TAKE 1 TABLET BY MOUTH EVERY DAY FOR 90 DAYS, Disp: , Rfl: meloxicam (Mobic) 15 MG tablet, TAKE 1 TABLET BY MOUTH EVERY DAY, Disp: 30 tablet, Rfl: 2 Allergies Patient has no known allergies. Past Surgical History History reviewed. No pertinent surgical history. Family History Family History Problem Relation Name Age of Onset Throat cancer Mother Crohn's disease Brother Objective Physical Exam Constitutional: Appearance: She is obese. Comments: Presents to clinic ambulating unassisted in [facility]. Accompanied by her . HENT: Head: Normocephalic and atraumatic. Cardiovascular: Pulses: Normal pulses. Pulmonary: Effort: Pulmonary effort is normal. No respiratory distress. Abdominal: Palpations: There is no mass. Musculoskeletal: Cervical back: No rigidity. Comments: Weightbearing examination reveals rectus morphology with maintenance of the medial longitudinal arch. Right foot: Continued isolated and maximal tenderness along the medial calcaneal tubercle and plantar, central calcaneus. Negative heel squeeze test. Muscle strength is 5/5 for all quadrants without tenderness. Ankle dorsiflexion 0 degrees with the knee extended, flexed. Skin: Capillary Refill: Capillary refill takes less than 2 seconds. Findings: No lesion or rash. Neurological: Mental Status: She is alert. Comments: No loss of protective sensation, gross sensation intact. Psychiatric: Mood and Affect: Mood normal. Behavior: Behavior normal. Assessment/Plan ICD-10-CM 1. Plantar fasciitis M72.2 2. Right foot pain M79.671 3. 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 Difficulty walking R26.2 6. S/P foot surgery Z98.890 Patient was examined and evaluated. I reviewed all previous, relevant imaging and lab studies. Due to the patient's continued pain and disability I have recommended surgical intervention. I discussedreasonable risks and complications of the planned procedures including but not limited to bleeding,infection, numbness, swelling, continued pain, need for further surgery, DVT, PE, loss of limb and loss of life. I discussed the recovery period for the planned procedures which will include [place] micro fasciotomy of the right plantar fascia with injection of human derived allograft tissue and possible gastrocnemius recession of the right lower extremity. Total recovery time is expected to be around 3 months. After discussing all the risks and benefits of surgical intervention she elects to proceed. We will follow up 2 weeks postoperatively. Patient was fitted today for a below knee walking cast, cam walker. The surgical boot is dispensed in anticipation of right foot postoperatively. I am dispensing this boot at a preoperative appointment so that she can have the boot for her surgical intervention next week. Patient was instructed to bring the boot with her to surgery as it will be donned before she leaves the operative area. At thetime of dispensing it was suitable and not substandard. Goals of therapy include prevent further injury, stabilization, reduction of stress and pressure to the operative area. Anticipated time of useis at least 2 weeks. Patient was instructed in the application and removal of this device. It fit we ll. ABN form discussed, presented, explained and then signed by patient. This note was created with the assistance of a speech recognition program. While intending to generate a timely document that accurately reflects the content of the visit, no guarantee can be provided that every grammatical or spelling mistake has been or will be identified or corrected. Thank you for your understanding. Eric Sotomayor DPM documented in this encounterSt. Lukes [facility] [id number] History of Present illness Narrative* Eric Sotomayor DPM - 01/11/2024 8:45 AM EST Images from the original note were not included. Subjective Patient ID: Mirna Barrios is a 28 y.o. female who presents for Injections (Established pt presents today requesting an injevtion for right foot, which has been bothersome for a couple of weeks now.). HPI Established patient returns to clinic for follow up evaluation of continued right heel pain. I havebeen treating her for plantar fasciitis for many months. She has responded very well to cortisone injections which seems to knock out her pain entirely for a short period of time. Unfortunately she has had recurrent symptomatology for the last month or so. Review of Systems Constitutional: Positive for activity change. Negative for appetite change. Respiratory: Negative for chest tightness and shortness of breath. Cardiovascular: Negative for chest pain. Endocrine: Negative for cold intolerance and heat intolerance. Musculoskeletal: Positive for arthralgias and gait problem. Skin: Negative for color change and wound. Allergic/Immunologic: Negative for immunocompromised state. Neurological: Negative for weakness and numbness. Hematological: Does not bruise/bleed easily. Psychiatric/Behavioral: Negative for agitation and behavioral problems. Medications Current Outpatient Medications: meloxicam (Mobic) 15 MG tablet, Take 15 mg by mouth Daily, Disp: , Rfl: No current facility-administered medications for this visit. Allergies Patient has no known allergies. Past Surgical History No past surgical history on file. Family History Family History Problem Relation Name Age of Onset Throat cancer Mother Crohn's disease Brother Objective Physical Exam Constitutional: Appearance: She is obese. Comments: Presents to clinic ambulating unassisted in Crocs. HENT: Head: Normocephalic and atraumatic. Cardiovascular: Pulses: Normal pulses. Pulmonary: Effort: Pulmonary effort is normal. No respiratory distress. Abdominal: Palpations: There is no mass. Musculoskeletal: Cervical back: No rigidity. Comments: Weightbearing examination reveals rectus morphology with maintenance of the medial longitudinal arch. Right foot: Isolated and maximal tenderness along the medial calcaneal tubercle and plantar, central calcaneus. Negative heel squeeze test. Muscle strength is 5/5 for all quadrants without tenderness. Ankle dorsiflexion 0 degrees with the knee extended, flexed. Skin: Capillary Refill: Capillary refill takes less than 2 seconds. Findings: No lesion or rash. Neurological: Mental Status: She is alert. Comments: No loss of protective sensation, gross sensation intact. Psychiatric: Mood and Affect: Mood normal. Behavior: Behavior normal. Assessment/Plan ICD-10-CM 1. Plantar fasciitis M72.2 betamethasone acetate-betamethasone sodium phosphate (Celestone) injection 3 mg triamcinolone acetonide (Kenalog-40) injection 20 mg 2. Right foot pain M79.671 3. Equinus contracture of right ankle M24.571 Patient examined and evaluated. Reviewed previous imaging studies. Unfortunately she continues to experience recurrent plantar fasciitis. She has responded well to cortisone injections previously. Today we discussed treatment options including immobilization, cortisone injection, surgical intervention. We elected to move forward with cortisone injection. Informed consent was obtained. Utilizing aseptic technique I injected 2 mL of 0.5 percent Marcaine plain, 20 mg of Kenalog and 3 mg of Celestone to the medial calcaneal tubercle of the right foot. Patient tolerated the procedure well and a band-aid was applied over the injection site. I have recommended 2 Tylenol and 2 Advil every 8 hours as needed for the next day to help reduce any steroid flare reaction. Continue stretching exercises daily. Continue to use power step orthotics as much as she is able to. Currently she is rotating between Crocs and power steps. Follow up as needed. If she continues to have issues consider surgical intervention. This note was created with the assistance of a speech recognition program. While intending to generate a timely document that accurately reflects the content of the visit, no guarantee can be provided that every grammatical or spelling mistake has been or will be identified or corrected. Thank you for your understanding. Eric Sotomayor DPM documented in this encounterSt. Lukes Des Peres [id number] History of Present illness Narrative* Andrea Sotomayor DPM - 11/19/2023 4:15 PM EDT Images from the original note were not included. Subjective Patient ID: Mirna Barrios is a 28 y.o. female who presents for Follow-up (Established pt presentstoday with concerns of RLE swelling, started about two weeks ago. Pt relates pins and needles feeling, tingling, painful. Went to ER yesterday, they did US, and blood work. No blood clots, the ER thought it may have. Driving aggravates it, NKI. Still has foot pain on the bottom. ). HPI Patient presents with pain right lower extremity and calf area which has developed over the past several days or so. Denies injury or trauma. Denies pop or snap sensation. She otherwise reports favorable improvement relative to the right heel subsequent to injection therapy. Presented [facility] ED: Duplex ultrasound unremarkable for DVT or thrombophlebitis. D- dimer normal value. Review of Systems Constitutional: Positive for activity change. Negative for appetite change. Respiratory: Negative for chest tightness and shortness of breath. Cardiovascular: Negative for chest pain. Endocrine: Negative for cold intolerance and heat intolerance. Musculoskeletal: Positive for arthralgias and gait problem. Skin: Negative for color change and wound. Allergic/Immunologic: Negative for immunocompromised state. Neurological: Negative for weakness and numbness. Hematological: Does not bruise/bleed easily. Psychiatric/Behavioral: Negative for agitation and behavioral problems. Medications Current Outpatient Medications: meloxicam (Mobic) 15 MG tablet, Take 1 tablet (15 mg) by mouth Daily, Disp: 90 tablet, Rfl: 0 Allergies Patient has no known allergies. Past Surgical History No past surgical history on file. Family History Family History Problem Relation Name Age of Onset Throat cancer Mother Crohn's disease Brother Objective Physical Exam Constitutional: Appearance: She is obese. HENT: Head: Normocephalic and atraumatic. Cardiovascular: Pulses: Normal pulses. Pulmonary: Effort: Pulmonary effort is normal. No respiratory distress. Abdominal: Palpations: There is no mass. Musculoskeletal: Cervical back: No rigidity. Comments: Weightbearing examination reveals rectus morphology with maintenance of the medial longitudinal arch. Right foot and lower extremity: Calf area is supple, minimally tender, without swelling, tenseness or induration. Popliteal area non-tender. There is mild tenderness along the posterior medial tibialcrest, without palpable tendinous defect. There remains slight tenderness over the medial calcaneal tubercle and fascial insertion; notably less sharp following injection therapy. Lateral squeeze of the calcaneus non-tender. Passive ankle dorsiflexion is consistent with mild gastrocnemius equinus Skin: Capillary Refill: Capillary refill takes less than 2 seconds. Findings: No lesion or rash. Neurological: Mental Status: She is alert. Comments: No loss of protective sensation, gross sensation intact. Psychiatric: Mood and Affect: Mood normal. Behavior: Behavior normal. Assessment/Plan No diagnosis found. 1. 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 2. Acute over chronic plantar fasciitis right foot by history. 3. Duplex ultrasound unremarkable for DVT. 4. D-dimer test normal value. Plan: Review of clinical findings, differential diagnosis, ED visit results, treatment strategy andobjectives. Continue meloxicam therapy once daily with food as needed. Recommend compression sleeve or sock. Encourage compliance with supportive footwear, Powerstep orthoses and stretching exercises. Discourage any barefoot walking; particularly when 1st arising. This note was created with the assistance of a speech recognition program. While intending to generate a timely document that accurately reflects the content of the visit, no guarantee can be provided that every grammatical or spelling mistake has been or will be identified or corrected. Thank you for your understanding. Andrea Sotomayor DPM documented in this [facility]09-12-2024 Instructions* Patient Instructions* Andrea Sotomayor DPM - 11/19/2023 4:15 PM EDT As noted documented in this encounterSt. Lukes Des Peres [id number] History of Present illness Narrative* Andrea Sotomayor DPM - 11/04/2023 8:30 AM EDT Images from the original note were not included. Subjective Patient ID: Mirna Barrios is a 28 y.o. female who presents for No chief complaint on file.. HPI Established patient of Dr. Eric Sotomayor. Chief complaint: Recurrent right heel pain. Denies triggering injury or trauma. Denies pop or snap sensation. Progressive, rather intense inferior heel pain over the past several weeks; well localized and characteristic of 1st step pain and post-static dyskinesia. Denies swelling, discoloration, dysesthesiasor radicular pain. Relates no recent change in activity or shoe gear. Reports good compliance with supportive footwear, Powerstep orthoses and stretching exercises. Review of Systems Constitutional: Positive for activity change. Negative for appetite change. Respiratory: Negative for chest tightness and shortness of breath. Cardiovascular: Negative for chest pain. Endocrine: Negative for cold intolerance and heat intolerance. Musculoskeletal: Positive for arthralgias and gait problem. Skin: Negative for color change and wound. Allergic/Immunologic: Negative for immunocompromised state. Neurological: Negative for weakness and numbness. Hematological: Does not bruise/bleed easily. Psychiatric/Behavioral: Negative for agitation and behavioral problems. Medications Current Outpatient Medications: meloxicam (Mobic) 15 MG tablet, Take 1 tablet (15 mg) by mouth Daily, Disp: 90 tablet, Rfl: 0 Allergies Patient has no known allergies. Past Surgical History No past surgical history on file. Family History Family History Problem Relation Name Age of Onset Throat cancer Mother Crohn's disease Brother Objective Physical Exam Constitutional: Appearance: She is obese. HENT: Head: Normocephalic and atraumatic. Cardiovascular: Pulses: Normal pulses. Pulmonary: Effort: Pulmonary effort is normal. No respiratory distress. Abdominal: Palpations: There is no mass. Musculoskeletal: Cervical back: No rigidity. Comments: Weightbearing examination reveals rectus morphology with maintenance of the medial longitudinal arch. Right foot: Exquisite/sharp point tenderness medial calcaneal tubercle/medial fascial insertion; without swelling, discoloration, warmth or nodular formation. Lateral squeeze of the calcaneus non-tender. Posterior joint line and Achilles tendon construct non-tender. Midfoot and forefoot structures non-tender. Passive ankle dorsiflexion is consistent with mild gastrocnemius equinus. Skin: Capillary Refill: Capillary refill takes less than 2 seconds. Findings: No lesion or rash. Neurological: Mental Status: She is alert. Comments: No loss of protective sensation, gross sensation intact. Psychiatric: Mood and Affect: Mood normal. Behavior: Behavior normal. Assessment/Plan No diagnosis found. 1. Recurrent, progressively symptomatic insertional plantar fasciitis/heel spur syndrome right. Plan: Review of clinical findings, previous x-ray and MRI findings; etiology and contributing/aggravating factors, treatment strategy, rationale and objectives. Right foot: Aseptic technique: Elective corticosteroid injection plantar fascial insertion right heel: Medial approach: Infiltrating point of maximum tenderness: Xylocaine with 0.3 cc Kenalog 40. Well tolerated. Supportive strapping right foot 5-7 days. Patient noted effective relief of symptoms upon leaving the clinic. Encourage compliance with supportive footwear, Powerstep orthoses and stretching exercises. Discourage any barefoot walking; particularly when 1st arising. This note was created with the assistance of a speech recognition program. While intending to generate a timely document that accurately reflects the content of the visit, no guarantee can be provided that every grammatical or spelling mistake has been or will be identified or corrected. Thank you for your understanding. Andrea Sotomayor DPM documented in this [facility]08-28-2024 Instructions* Patient Instructions* Andrea Sotomayor DPM - 11/04/2023 8:30 AM EDT As noted documented in this [facility]01-09-2024 Evaluation note* Encounter Date Diagnosis Assessment Notes Treatment Notes Treatment Clinical Notes Mar, Right wrist pain (ICD-10 - M25.531) Mar, Strain of right wrist, initial encounter (ICD-10 - S66.911A) Rest the right wrist. Ice. Elevate. Take Tylenol or Motrin for discomfort. Wear the wrist splint during the day. Follow up with orthopedics. Patient is a 27 yo female who presents with complaints of right wrist pain and injury 3 weeks ago. 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 She endorses intermittent pain, swelling, cramping in the wrist. Wanted to ensure it was not broken. X-ray obtained during visit and reviewed- no fracture or dislocation noted. Wrist splint applied to the right wrist and patient referred to orthopedics for further follow up. SHe is to take Tylenol or Motrin, rest, ice and elevate the right wrist. [facility] Other 10-19-2021 Evaluation note* Encounter Date Diagnosis Assessment Notes Treatment Notes Treatment Clinical Notes Dec, Contact with and (suspected) exposure to other viral communicable diseases (ICD-10 - Z20.828) Today test was performed in office. Results are currently negative. That does not mean that you will not develop COVID or do not currently have a low viral count of COVID. The rapid test works best if symptoms have been over 72 hours and the results can vary if you are asymptomatic There is a higher chance of false negative results to occur if testing is performed too soon. It is recommended that even if results are negative and you have been exposed to someone that has COVID that you follow current CDC recommendations. These can be found at CDC.GOV. Follow up with primary care provider if symptoms persist or do not improve Dec, Other Additional time spent conducting pre-visit phone call, screening for symptoms, instructions on social distancing, application and removal of PPE, and cleaning of examination room, equipment and supplies was preformed. Patient education given for testing methodology and results. Patient care instructions given in writting by [facility] [place]NOTE 2[place] [facility] document. [facility] Other Evaluation noteNo assessment information available [facility] Work Phone: Evaluation note* Diagnosis Plantar fasciitis- Primary Plantar fascial fibromatosis Right foot pain Pain in soft tissues of limb Equinus contracture of right ankle documented in this encounter [facility]* Diagnosis Plantar fascial fibromatosis documented in this encounter [facility]* Diagnosis Posterior medrano splints, right, initial encounter- Primary Tibialis posterior tendonitis, right Pain of right calf Plantar fasciitis Plantar fascial fibromatosis Inflammatory heel pain, right documented in this encounter [facility]Evaluation [facility]* Diagnosis Plantar fasciitis- Primary Plantar fascial fibromatosis Inflammatory heel pain, right Equinus contracture of right ankle Difficulty walking Difficulty in walking documented in this encounter [facility]* Diagnosis Plantar fasciitis- Primary Plantar fascial fibromatosis Right foot pain Pain in soft tissues of limb Equinus contracture of right ankle Instability of right ankle joint Difficulty walking Difficulty in walking S/P foot surgery Other postprocedural status documented in this encounter [facility]* Diagnosis Preop examination- Primary Unspecified pre-operative examination Type 2 diabetes mellitus without complication, unspecified whether watermaster insulin use ([facility]) documented in [facility] encounter [facility]* Diagnosis Plantar fascial fibromatosis documented [facility]* Diagnosis Rupture of muscle, nontraumatic- Primary Stress fracture of right calcaneus Plantar fasciitis Plantar fascial fibromatosis Right foot pain Pain in soft tissues of limb documented in [facility] encounter [facility]* Diagnosis Onset Date Resolution Status Admit Date IBS (irritable bowel syndrome) acute June 24, 2024 9:53am [facility] Work Phone: Evaluation note* Diagnosis Plantar fasciitis- Primary Plantar fascial fibromatosis Right foot pain Pain in soft tissues of limb S/P foot surgery Other postprocedural status documented in this encounter [facility]* Diagnosis Plantar fasciitis- Primary Plantar fascial fibromatosis documented in this encounter [facility]* Diagnosis S/P foot surgery- Primary Other postprocedural status Plantar fasciitis Plantar fascial fibromatosis Equinus contracture of right ankle documented in this encounter [facility]* Diagnosis Well woman exam with routine gynecological exam Routine gynecological examination Pelvic pain in female Unspecified symptom associated with female genital organs Irregular menses Irregular menstrual cycle documented in this encounter [facility] HealthcareHistory general Narrative - Reported* Type Description Date Medical History drug abuse Hospitalization History child [facility] Other Summary Purpose Family History Relationship Condition Age at Onset Recorded Date/T chayo brother 26 Crohn's disease Unknown father Unknown family member Family history of ot her condition Unknown mother Unknown maternal grandmother Heart disease Unknown Myocardial infarction Unknown Relationship Condition Age at Onset Recorded Date/T chayo brother 26 Crohn's disease Unknown father Unknown family member Family history of ot her condition Unknown mother Unknown maternal grandmother Heart disease Unknown Myocardial infarction Unknown paternal grandmother Parkinson's disease Unknown maternal grandfather Parkinson's disease Unknown Advance Directives Advance Directive Response Recorded Date/ Time Advance Directives No March 20, 2023 12:52pm Chief Complaint and Reason for Visit Chief Complaint Admit Date Irritable Bowel Syndrome June 24 9:53am Reason for Visit Admit Date IBS (irritable bowel syndrome) June 9:53am Chief Complaint Admit Date Irritable Bowel Syndrome June 24 9:53am abd pain/constipation/overflow diarrhea/ nausea/blo July 21, 2024 10:00am abd pain/constipation/overflow diarrhea/ nausea/blo July 21, 2024 11:00am Additional Source Comments INFORMATION SOURCE (unrecogn ized section and content) DATE CREATED AUTHOR 09/01/2017 Sirena katz DATE CREATED AUTHOR AUTHOR'S ORGANIZ ATION 06/21/2020 [facility] DATE CREATED AUTHOR AUTHOR'S ORGANIZ ATION 07/30/2023 [facility] DATE CREATED AUTHOR AUTHOR'S ORGANIZ ATION 08/03/2024 [facility] DATE CREATED AUTHOR AUTHOR'S ORGANIZ ATION 08/10/[address] [facility] DATE CREATED AUTHOR AUTHOR'S ORGANIZ ATION 09/18/2024 [facility] DATE CREATED AUTHOR AUTHOR'S ORGANIZ ATION 11/09/2024 [facility] REASON FOR VISIT (unrecogniz ed section and content) Reason Comments Injections Established pt prese nts today requesting an injevtion for right foot, which has been bothersome for a couple of weeks now. Reason Comments Med Refill Reason Comments Follow-up Established pt prese nts today with concerns of RLE swelling, started about two weeks ago. Pt relates pins and needles feeling, tingling, painful. Went to ER yesterday, they did US, and blood work. No blood clots, the ER thought it may have. Driving aggravates it, NKI. Still has foot pain on the bottom. Reason Comments Foot Pain Established pt prese nts today requesting an injection in right foot. Pt relates very painful. Reason Comments Consent and Instructions Mirna Barrios is a 28 y.o. female who presents for Consent and Instructions for upcoming surgery scheduled 05/12/2024. Reason Comments Follow-up PT is here today for a 1mo post op visit. She states she is taking tylenol all day everyday, she feels like the pain is worse than before surgery. Shooting pains, very stiff. Pain started after she stopped wearing the camwalkerSS: 6 Reason Comments Follow-up Established pt prese nts today to review MRI results. Pt is still having significant pain in right foot. SS: 6 Reason Onset Date Comments Advice Only 07/20/2024 PT Referral Rx Request Reason Comments Follow-up Pt is here today for 1mo FUV plantar fasciitis, pain has not changed. Some days pain is worse, it will wake her up all nightSS: 6.5 Reason Comments Well Women Visit Care Teams (unrecognized sec tion and content) Team Status: Inactive Member Role Status Dates Ary M Mariusz , BUZZSAW OPERATOR HELPER Attending Provider Active Janitor Helper Relationship Specialty Start Date End Date Dave Bernardo MD [address] [place] [address] PCP - General Family Medicine 12/23/22 Janitor Helper Relationship Specialty Start Date End Date Dave Bernardo MD [address] [place] [address] PCP - General Family Medicine 12/23/22 Janitor Helper Relationship Specialty Start Date End Date Dave Bernardo MD [address] [facility] [place] [address] PCP - General Family Medicine 12/23/22 Janitor Helper Relationship Specialty Start Date End Date Dave Bernardo MD [address] [place] [address] PCP - General Family Medicine 12/23/22 Janitor Helper Relationship Specialty Start Date End Date Dave Bernardo MD [address] [facility] [place] [address] PCP - General Family Medicine 12/23/22 Janitor Helper Relationship Specialty Start Date End Date Dave Bernardo MD [address] [place] [address] PCP - General Family Medicine 12/23/22 Janitor Helper Relationship Specialty Start Date End Date No Pcp, [place] [address] PCP - General Family Medicine 02/18/24 Team Status: Active Member Role Status Dates Dana Buck [facility] Primary Care Provider Active Team Status: Inactive Member Role Status Dates Dana Buck [facility] Primary Care Provider Active Start: June 24, 2024 End: June 24, 2024 Marce Barnes DO Attending Provider Active St art: June 24, 2024 End: June 24, 2024 Team Status: Active Member Role Status Dates PHYSICIAN NO FAMILY Primary Care Provider Active Team Status: Inactive Member Role Status Dates Marce Barnes , DO Attending Provider Active St art: July 21, 2024 End: July 21, 2024 PHYSICIAN NO FAMILY Primary Care Provider Active Start: July 21, 2024 End: July 21, 2024 Team Status: Active Member Role Status Dates Marce Barnes , DO Attending Provider, Other Provider Active Start: July 21, 2024 PHYSICIAN NO FAMILY Primary Care Provider Active Start: July 21, 2024 Goals (unrecognized section and content) Goals may be documented in a n alternate section FOR RECORDS PERTAINING TO PATIENTS WHO ARE OR HAVE BEEN ENROLLED IN A CHEMICAL DEPENDENCY/SUBSTANCEABUSE PROGRAM, SOME INFORMATION MAY BE OMITTED. This clinical summary was aggregated from multiple sources. Caution should be exercised in using it in the provision of clinical care. This summary normalizes information from multiple sources, and as a consequence, information in this document may materially change the coding, format and clinical context of patient data. In addition, data may be omitted in some cases. CLINICAL DECISIONS SHOULD BE BASED ON THE PRIMARY CLINICAL RECORDS. [facility]. provides no warranty or guarantee of the accuracy or completeness of information in this document.
[2024-11-29 19:12] LABS: Age Gdln ACOG Testing Note (.); IGP, Aptima HPV, rfx 16/18,45 Note (.)
== END 2024-11-23 20:33 | disposition home or self-care (01) ==
LOC: LAB 20:32
PROVIDERS: PCP Family Medicine; Visit Provider Physician Assistant
DX: Z01.419 Encounter for gynecological examination (general) (routine) without abnormal findings (principal)
CPT/HCPCS: 87624; 88175

== ENCOUNTER 2024-12-07 10:53 | Outpatient (OUT) | payer MEDICAID, SELFPAY ==
--- OUTSIDE RECORDS SUMMARY | 2024-04-29 06:45 | XMS_ITS ---
Author Organization [facility] vices Address [facility] [address] [place], [place] [id number] Care Team Providers Care Mailroom Associate Name Role Phone Barak Wrihgt Primary Care Provider REASON FOR VISIT Constipation Social History Sex Assigned At : Social History Observation Description Sex Assigned At Female Encounters Encounter Location Date Provider Diagnosis Main [address] [place], [place] [address], [place] [id number] 04/29/2024 Barak Wright Plan Of Treatment Next Appt Details Provider Name:Maria Luz Ivy , 12/15/2024 12:45:00 PM, [address] [place] [address], [phone], Progress Notes * Mirna BARRIOSDOB:1995 (29 yo F)Acc No.[id number]:04/29/2024 Medical Note Patient: Mirna KIRK Provider: Basilio Wright :1995 A ge:29 Y S ex:Female Date:04/29/2024 [id number] Subjective: * Chief Complaints: * 1 . Constipation. * Medical History: Objective: * Vitals: Assessment: Plan: * Treatment: * Billing Information: * Visit Code: * Procedure Codes: * Electronic signature of ALEXA Hollis on 12/07/2024 at 10:55 AM EDT Sign off status: Pending * Provider: Basilio Wright Date: 04/29/2024 Generated for Printi ng/Jessica/Sethitting on: 1 10:55 AM EDT
--- OUTSIDE RECORDS SUMMARY | 2024-11-23 14:30 | XMS_ITS | Encounter Summary ---
Author Organization [facility] Address [address] [place] [address] Care Team Providers Care Facilities Operations Technician Name Role Phone Unavailable Primary Care Provider Unavailabl e Reason for Visit * Reason Comments Well Women Visit Encounter Details Date Type Department Care Team (Latest Contact Info) Description 11/23/2024 2:30 PM EDT Procedure Visit [facility] [address] [place] [address] Odalis Fermin PA [address] [place] [address] Well woman exam with routine gynecological exam; Pelvic pain in female; Irregular menses Social History Tobacco Use Types Packs/Day Years Used Date Smoking Tobacco: Never Smokeless Tobacco: Never Tobacco Cessation:Counseling Given: Not Answered Alcohol Use Standard Drinks/Week Comments Never 0 (1 standard drink = 0.6 oz pur e alcohol) Comments Unknown Sex and Gender Information Value Date Recorded Sex Assigned at Not on file Legal Sex Female 12:55 PM EDT Gender Identity Female 12/22/2022 10:49 AM EDT Sexual Orientation Not on file documented as of this encounter Last Filed Vital Signs Vital Sign Reading Time Taken Comments Blood Pressure 118/78 11/23/2024 2:48 PM EDT Pulse - - Temperature - - Respiratory Rate - - Oxygen Saturation - - Inhaled Oxygen Concentration - - Weight 98.4 kg (217 lb) 11/23/2024 2:48 PM EDT Height - - Body Mass Index 39.69 08/09/2024 8:53 AM EDT documented in this encounter Progress Notes * ALEXA Ocasio - 11/23/2024 2:30 PM EDT Reason for Appointment: Patient ID: Mirna Barrios is a 29 y.o. female who presents for Well Women Visit Patient presents today for Annual Exam. MEDICATIONS Current Outpatient Medications Medication Instructions acetaminophen (Tylenol) 500 MG tablet Take by mouth celecoxib (CeleBREX) 100 MG capsule TAKE 1 CAPSULE BY MOUTH TWICE A DAY FOR PAIN DO NOT TAKE WITH OTHER NSAIDS cyclobenzaprine (FLEXERIL) 10 mg topiramate (Topamax) 25 MG tablet ALLERGIES No Known Allergies PROBLEMS Active Ambulatory Problems Diagnosis Date Noted Plantar fasciitis of right foot 06/24/2023 Left ovarian cyst 09/07/2023 Well woman exam with routine gynecological exam 11/23/2024 Resolved Ambulatory Problems Diagnosis Date Noted No Resolved Ambulatory Problems Past Medical History: Diagnosis Date Clotting disorder ([facility]) 07/01/23 HISTORY PAST MEDICAL HISTORY SOCIAL HISTORY Past Medical History: Diagnosis Date Clotting disorder ([facility]) 07/01/23 Social History Tobacco Use Smoking status: Never Smokeless tobacco: Never Vaping Use Vaping status: Never Used Substance Use Topics Alcohol use: Never Drug use: Never FAMILY HISTORY Family History Problem Relation Name Age of Onset Throat cancer Mother Crohn's disease Brother SURGICAL HISTORY Past Surgical History: Procedure Laterality Date FOOT SURGERY Right 05/12/2024 REVIEW OF SYSTEMS Review of Systems: Review of Systems Constitutional: Negative. HENT: Negative. Eyes: Negative. Respiratory: Negative. Cardiovascular: Negative. Gastrointestinal: Negative. Genitourinary: Negative. Musculoskeletal: Negative. Skin: Negative. Neurological: Negative. All other systems reviewed and are negative. Hematological: Negative. Endocrine: Negative. Allergic/Immunologic: Negative. OBJECTIVE Objective: Physical Exam Constitutional: Appearance: Normal appearance. She is well-developed. Genitourinary: Vulva normal. Cardiovascular: Rate and Rhythm: Normal rate and regular rhythm. Pulmonary: Effort: Pulmonary effort is normal. Breath sounds: Normal breath sounds. Abdominal: General: Bowel sounds are normal. There is no distension. Palpations: Abdomen is soft. Tenderness: There is no abdominal tenderness. There is no guarding or rebound. Musculoskeletal: General: No swelling. Normal range of motion. Right lower leg: No edema. Left lower leg: No edema. Neurological: Mental Status: She is alert and oriented to person, place, and time. Skin: General: Skin is warm and dry. Psychiatric: Mood and Affect: Mood normal. Behavior: Behavior normal. Vitals and nursing note reviewed. Exam conducted with a central office equipment engineer present. Vitals: Estimated body mass index is 39.69 kg/m?? as calculated from the following: Height as of 08/09/24: 5' 2 . Weight as of this encounter: 217 lb. BP: 118/78 Patient's last menstrual period was 11/04/2024 (exact date). ASSESSMENT & PLAN ICD-10-CM 1. Well woman exam with routine gynecological exam Z01.419 Pap Smear HPV DNA probe, amplified US Pelvis w/ TV 2. Pelvic pain in female R10.2 US Pelvis w/ TV CANCELED: US Pelvis w/ TV 3. Irregular menses N92.6 US Pelvis w/ TV Orders Placed This Encounter Procedures HPV DNA probe, amplified US Pelvis w/ TV Annual Wellness Exam: Patient presents today for routine annual exam. Patient states she has complaints of ovarian pain. Patients vitals were reviewed and within normal limits. Growth and development is noted to be appropriate for age. Menstrual history is noted to be regular with no concerns reported. No mental health concerns was expressed. Pap Smear: Speculum was inserted into the vagina and pap was obtained without difficulty. HPV testing was performed per age guideline. Patient was advised that pap results could take anywhere from 7 to 10 days to receive and our office will reach out to the patient with those once we have them. Patient can also view results via [employer]. I reinforced importance of condom use for STI prevention. Patient declined cultures to be performed with today's visit. Breast Exam: Upon examination, clinical breast exam was noted to be normal. Patient was counseled on breast self-awareness, including the importance of knowing what is normal for her own breasts and promptly reporting any changes such as new lumps, skin dimpling, nipple discharge, or pain. Screening mammogram recommended annually beginning at age 40 or earlier if risk factors are present. Discussed signs and symptoms of breast cancer and when to seek medical attention. Answered all patient questions. Contraceptive Counseling (if applicable): Patient is currently using no control at this time as a form of contraceptive. Patient does not desire control at this time. Follow Up: Patient is to return to our office in one year for annual exam unless needed otherwise. Patient concerns for ovarian cyst had recent pain and bleeding post intercourse, we will get US, states she had ovarian cyst last year with similar pain Documented by ALEXA Ocasio on behalf of: ALEXA Ocasio documented in this encounter Plan of Treatment Scheduled Orders Name Type Priority Associated Diagnoses Orde r Schedule Pap Smear Pathology and Cytology Routine Well woman exam with routine gynecological exam Ordered: 11/23/2024 HPV DNA probe, amplified Microbiology Routine Well woman exam with routine gynecological exam Ordered: 11/23/2024 US Pelvis w/ TV Imaging Routine Well woman exam with routine gynecological exam Pelvic pain in female Irregular menses Expected: 11/23/2024, Expires: 05/23/2025 documented as of this encounter Visit Diagnoses Diagnosis Well woman exam with routine gynecological exam Routine gynecological examination Pelvic pain in female Unspecified symptom associated with female genital organs Irregular menses Irregular menstrual cycle documented in this encounter
--- NOTE | 2024-12-07 10:55 | US_ITS ---
The [address] [address] Patient Name: DAKSHA HUYNH MRN: [id number] date: 1995 Sex: F Assigned Patient Location: Current Patient Location: Accession/Order Number: [id number] Exam Date: 12/07/2024 10:56 Report Date: 12/07/2024 12:10 At the request of: GRACE LARKIN Procedure: US pelvis w/ transvaginal ULTRASOUND PELVIS WITH TRANSVAGINAL COMPARISON: 08/31/2023 CLINICAL DATA: Pelvic pain. Real-time ultrasound evaluation the pelvis was performed utilizing both a transabdominal and transvaginal approach. TRANSABDOMINAL: Estimated uterine size is approximately 9.4 x 3.4 x 5.1 cm. No focal myometrial abnormalities are seen. The endometrial lining is estimated at 7 - 8 mm. The ovaries are both visualized. The right contains a cystic structure. TRANSVAGINAL: Transvaginal imaging was performed to better evaluate the uterus and adnexa. By this approach, no focal myometrial abnormalities are seen. The endometrial lining is estimated at 3 mm. Both ovaries are again visualized. The right measures 3.7 x 2.6 x 3.6 cm. The left ovary measures 1.9 x 1.3 x 2.3 cm. There are small follicles. There is also a right ovarian cyst which measures 2.7 x 1.7 x 3.1 cm. There is documentation of bilateral ovarian blood flow with resistive index of 0.5 on the right and 0.4 on the left. No free fluid is noted. US/US pelvis w/ transvaginal IMPRESSION: RIGHT OVARIAN CYST. NO OTHER SIGNIFICANT FINDINGS. Impression dictated by: Sudha Aparicio M.D. 12/07/2024 12:10 PM Dictation Location: [place] [address] Electronically authenticated by: [id number] Y Date: 12/07/2024 12:10
--- OUTSIDE RECORDS SUMMARY | 2024-12-07 10:55 | XMS_ITS | Encounter Summary ---
Author Organization [facility] Address [address] [place] [address] Care Team Providers Care Legal Coordinator Name Role Phone Unavailable Primary Care Provider Unavailabl e Encounter Details Date Type Department Care Team (Late st Contact Info) Description 12/21/2022 Abstract [facility] [address] [place] [address] Bentley Sotomayor DPM [address] [place] [address] Social History Tobacco Use Types Packs/Day Years Used Date Smoking Tobacco: Never Assessed Comments Unknown Sex and Gender Information Value Date Recorded Sex Assigned at Not on file Legal Sex Female 12:55 PM EDT Gender Identity Female 12/22/2022 10:49 AM EDT Sexual Orientation Not on file COVID-19 Exposure Response Date Recorded In the last 10 days, have yo u been in contact with someone who was confirmed or suspected to have Coronavirus/COVID-19? No / Unsure 12/22/2022 10:55 AM EDT documented as of this encounter Plan of Treatment Not on file documented as of this encounter Visit Diagnoses Not on filedocumented in this encounter
--- OUTSIDE RECORDS SUMMARY | 2024-12-07 10:55 | XMS_ITS | Clinical Summary ---
Author Organization [facility] Address [address] [place] [address] Care Team Providers Care Program Administrator Name Role Phone Unavailable Primary Care Provider Unavailabl e Allergies No known active allergies Medications topiramate (Topamax) 25 MG tablet 4 Active acetaminophen (Tylenol) 500 MG tablet Take by mouth Active cyclobenzaprin e (Flexeril) 10 MG tablet 10 mg Active celecoxib (CeleBREX) 100 MG capsule TAKE 1 CAPSULE BY MOUTH TWICE A DAY FOR PAIN DO NOT TAKE WITH OTHER NSAIDS 5 Active predniSONE (Deltasone) 10 MG tabletIndicati ons:Plantar fasciitis Take twice daily for 5 days, then take once daily for 5 days. 15 tablet 5 11/24/19 25 Discontinued Active Problems Problem Noted Date Diagnosed Date Well woman exam with routine gynecological exam 11/23/2024 Left ovarian cyst 09/07/2023 Plantar fasciitis of right foot 06/24/2023 Encounters Date Type Department Care Team Description 12/01/2024 Orders Only [facility] [address] [place] [address] More Garcia MA 11/23/2024 2:30 PM EDT Procedure Visit [facility] [address] [place] [address] Odalis Fermin PA Well woman exam with routine gynecological exam; Pelvic pain in female; Irregular menses 11/23/2024 Clinisync Result Encounter [facility] External Department Unsolicited Odalis Fermin PA 11/23/2024 Bamboo flowsheet [facility] [address] [place] [address] Odalis Fermin PA 11/08/2024 Travel 10/06/2024 Telephone [facility] [address] [place] [address] Lorenzo Valerio DO from Last 3 Months Family History Medical History Relation Name Comments Crohn's disease Brother Throat cancer Mother Relation Name Status Comments Brother Father Mother Social History Tobacco Use Types Packs/Day Years [...] AM EDT Sexual Orientation Not on file Last Filed Vital Signs Vital Sign Reading Time Taken Comments Blood Pressure 118/78 11/23/2024 2:48 PM EDT Pulse - - Temperature - - Respiratory Rate - - Oxygen Saturation - - Inhaled Oxygen Concentration - - Weight 98.4 kg (217 lb) 11/23/2024 2:48 PM EDT Height 157.5 cm (5' 2 ) 08/09/2024 8:53 AM EDT Body Mass Index 39.69 08/09/2024 8:53 AM EDT Plan of Treatment Not on file Procedures Procedure Name Priority Date/Time Associated Diagnosis Comments IGP,APTIMA HPV,AGE GDLN Routine 11/23/2024 2:43 PM EDT PAP SMEAR Routine 11/23/2024 12:00 AM EDT from Last 3 Months Results * IGP,APTIMA HPV,AGE GDLN (11/23/2024 2:43 PM EDT) Pathologist [facility] AGE GDLN ACOG TESTING Note . TB Comment: TESTS RESULT FLAG UNITS REF RANGE LAB Clinician Provided Cytology Information Source.............Cervix;Endocervix No. of containers..01 ThinPrep Vial Age Alec SCHMID Edilma... FLAG LEGEND: L-Low Normal,H-High Normal,LL-Alert Low,HH-Alert High <-Panic Low,>-Panic High,A-Abnormal,AA-Critical Abnormal Performed at: 01 [facility] [address] [facility] [address] Mohini Benson MD, IGP, APTIMA HPV, RFX 16/18,45 Note . [facility] Comment: TESTS RESULT FLAG UNITS REF RANGE LAB DIAGNOSIS: 02 NEGATIVE FOR INTRAEPITHELIAL LESION OR MALIGNANCY. Specimen adequacy: 02 Satisfactory for evaluation. Endocervical and/or squamous metaplastic cells (endocervical component) are present. Performed by: Audelia Mac Machine Quilt Stuffer ([facility]) . 02 Note: Note 02 The Pap smear is a screening test designed to aid in the detection of premalignant and malignant conditions of the uterine cervix. It is not a diagnostic procedure and should not be used as the sole means of detecting cervical cancer. Both false-positive and false-negative reports do occur. Test Methodology: Note 02 This liquid based ThinPrep(R) pap test was screened with the use of an image guided system. HPV Genotype Reflex Note 02 Criteria not met, HPV Genotype not performed. FLAG LEGEND: L-Low Normal,H-High Normal,LL-Alert Low,HH-Alert High <-Panic Low,>-Panic High,A-Abnormal,AA-Critical Abnormal Performed at: [address] [address] Mohini Benson MD, HPV APTIMA Negative Negative [facility] Comment: This nucleic acid amplification test detects fourteen high- risk HPV types (16,18,31,33,35,39,45,51,52,56,58,59,66,68) without differentiation. Performed at: =[address] [id number] Audio Specialist: Mohini Benson MD, Phone: [phone] Performed at: [address] [id number] Audio Specialist: Mohini Benson MD, Phone: [phone] 11/23/2024 2:43 PM EDT 11/24/2024 6:07 AM EDT Narrative [facility] - 11/29/2024 7:12 PM EDT BRUSH-SPATULA CERVIX ENDOCERVIX us Odalis [facility] BLOOD ORDERABLES Final Resul t [facility] * Pap Smear (11/23/2024 12:00 AM EDT) Swab Cervical swab / Unknown us Odalis [facility] CYTOLOGY ORDERABLES Final Re sult EXTERNAL LAB from Last 3 Months Insurance [employer] [place]ICA[place]
--- OUTSIDE RECORDS SUMMARY | 2024-12-07 10:55 | XMS_ITS | Encounter Summary ---
Author Organization [facility] Address [address] [place] [address] Care Team Providers Care Grader Marker Name Role Phone Unavailable Primary Care Provider Unavailabl e Encounter Details Date Type Department Care Team (Late st Contact Info) Description 11/23/2024 Bamboo flowsheet [facility] [address] [address] Odalis Fermin PA [address] [facility] [address] [place], [facility] Social History Tobacco Use Types Packs/Day Years Used Date Smoking Tobacco: Never Smokeless Tobacco: Never Alcohol Use Standard Drinks/Week Comments Never 0 (1 standard drink = 0.6 oz pur e alcohol) Comments Unknown Sex and Gender Information Value Date Recorded Sex Assigned at Not on file Legal Sex Female 12:55 PM EDT Gender Identity Female 12/22/2022 10:49 AM EDT Sexual Orientation Not on file documented as of this encounter Plan of Treatment Not on file documented as of this encounter Visit Diagnoses Not on filedocumented in this encounter
--- OUTSIDE RECORDS SUMMARY | 2024-12-07 10:55 | XMS_ITS | Encounter Summary ---
Author Organization [facility] Address [address] [place] [place] [address] Care Team Providers Care Steam Setter Name Role Phone Unavailable Primary Care Provider Unavailabl e Encounter Details Date Type Department Care Team (Late st Contact Info) Description 12/08/2023 External Result Encounter [facility] [address] [place] [address] Lorenzo Valerio DO [address] [facility] [place] [address] Social History Tobacco Use Types Packs/Day Years [...] on file documented as of this encounter Procedures Procedure Name Priority Date/Time Associated Diagnosis Comments US PELVIS TRANSVAGINAL 12/08/2023 2:03 PM EDT documented in this encounter Results * US pelvis transvaginal (12/08/2023 2:03 PM EDT) Anatomical Region Laterality Modality Pelvis Ultrasound 12/08/2023 2:03 PM EDT Narrative 12/08/2023 2:02 PM EDT THIS EXAM WAS PERFORMED AT [facility] CLINICAL INFORMATION: Right ovarian cyst COMPARISON: 07/28/23. PROCEDURE: Transabdominal imaging was obtained for the detection of extra- adnexal pathology. Transvaginal imaging was obtained for better [...] Seven Mena MD on 12/08/2023 2:02 PM Procedure Note Radiology, Radiologist, MD - 12/08/2023 THIS EXAM WAS PERFORMED AT [facility] CLINICAL INFORMATION: Right ovarian cyst COMPARISON: 07/28/23. PROCEDURE: Transabdominal imaging was obtained for the detection ofextra-adnexal pathology. Transvaginal imaging was obtained for bettervisualization of the adnexa and endometrium. FINDINGS: The uterus measures 8.4 x 6.1 x 3.5 cm. Endometrial thickness 5 mm.Right ovary 3.0 x 2.0 x 2.0 cm, no current cyst. Left ovary measures 3.4x 2.2 x 2.0 cm. No free fluid. Some small follicles are noted. IMPRESSION: * No acute findings. Resolution of previously identified cyst. Finalized by Seven Mena MD on 12/08/2023 2:02 PM us Lorenzo Iman DO [facility] US PROCEDURES Final Result documented in this encounter Visit Diagnoses Not on filedocumented in this encounter
--- OUTSIDE RECORDS SUMMARY | 2024-12-07 10:55 | XMS_ITS | Encounter Summary ---
Author Organization [facility] Address [address] [place] [address] Care Team Providers Care Ship Yard Electrical Person Name Role Phone Unavailable Primary Care Provider Unavailabl e Reason for Visit * Reason Comments Med Refill Encounter Details Date Type Department Care Team (Late st Contact Info) Description 01/10/2023 Refill [facility] [address] [place] [phone] Bentley Sotomayor, DPJeff [address] [place], [place] [phone] Plantar fasciitis Social History Tobacco Use Types Packs/Day Years [...] as of this encounter Visit Diagnoses Diagnosis Plantar fasciitis Plantar fascial fibromatosis documented in this encounter
--- OUTSIDE RECORDS SUMMARY | 2024-12-07 10:55 | XMS_ITS | Clinical Summary ---
Author Organization [facility] tem Address [id number] [address] [place] [address] Care Team Providers Care Eligibility And Occupancy Interviewer Name Role Phone No Pcp, No Pcp Primary Care Provider Unavailabl e Allergies Active Allergy Reactions Criticality Noted Date Comments Bee Venom Protein (Honey Bee) 2024 Medications cyclobenzaprine (FLEXERIL) 10 mg tablet Take 1 tablet (10 mg total) by mouth 2 (two) times a day as needed for muscle spasms. 10 tablet 02/18/2024 Active [id number] A-calcium &mins (THERAGRAN-M) 9 mg iron-400 mcg tablet Take 1 tablet by mouth in the morning. Active topiramate (TOPAMAX) 25 mg capsule Take 1 capsule (25 mg total) by mouth in the morning. Active Active Problems No known active problems Encounters Date Type Department Care Team Description 11/01/2024 12:42 PM EDT - 11/01/2024 11:59 PM EDT Hospital Encounter [facility] [place] [address] Timothy Cortez, PAAlexysC Figueroa's cyst of knee, right; Pes anserinus bursitis of right knee Discharge Disposition: Home 10/31/2024 Travel 09/14/2024 1:48 PM EDT - 09/14/2024 11:59 PM EDT Hospital Encounter [facility] [address] [place] [address] Localized swelling, mass and lump, lower limb, right; Pes anserinus bursitis of right knee Discharge Disposition: Home 09/14/2024 Travel from Last 3 Months Family History Medical History Relation Name Comments Crohn's disease Brother 1 Anemia Brother 2 No Known Problems Father Heart disease Maternal Grandmother Hyperlipidemia Maternal Grandmother Hypertension Maternal Grandmother Arthritis Mother COPD Mother Cancer Mother throat Diabetes Mother Fibromyalgia Mother Heart disease Mother Hyperlipidemia Mother Hypertension Mother Relation Name Status Comments Brother 1 Brother 2 Alive Father Maternal Grandmother Mother Social History Tobacco Use Types Packs/Day Years Used Date Smoking Tobacco: Former Cigarettes 0 04/22/2008 - 04/22/2018 Smokeless Tobacco: Never Tobacco Cessation:Counseling Given: Not Answered Alcohol Use Standard Drinks/Week Comments No 0 (1 standard drink = 0.6 oz pur e alcohol) Childcare Answer Date Recorded Childcare Unknown 08/18/2018 Employment Answer Date Recorded Employment Unknown 08/18/2018 Hunger Screening Answer Date Recorded Within the past 12 months we worried whether our food would run out before we got money to buy more. Never True 07/12/2024 Within the past 12 months th e food we bought just didn't last and we didn't have money to get more. Never True 07/12/2024 Purpose - Life Answer Date Recorded Purpose and direction in life Unknown Comments No Sex and Gender Information Value Date Recorded Sex Assigned at Not on file Legal Sex Female 11:48 AM EDT Gender Identity Not on file Sexual Orientation Not on file Last Filed Vital Signs Vital Sign Reading Time Taken Comments Blood Pressure 134/92 07/12/2024 5:26 PM EDT Pulse 92 07/12/2024 5:26 PM EDT Temperature 36.9 C (98.4 F) 07/12/2024 5:26 PM EDT Respiratory Rate 20 07/12/2024 5:26 PM EDT Oxygen Saturation 100% 07/12/2024 5:26 PM EDT Inhaled Oxygen Concentration - - Weight 92.1 kg (203 lb) 07/12/2024 5:26 PM EDT Height 157.5 cm (5' 2 ) 07/12/2024 5:26 PM EDT Body Mass Index 37.13 07/12/2024 5:26 PM EDT Plan of Treatment Health Maintenance Due Date Last Done Comments Diabetic Ophthalmology Exam 1993 Depression Screening 2005 Adult BMI Follow Up Plan 2011 Diabetic Foot Exam 2011 DTaP,Tdap and Td Vaccines (1 - Tdap) 2012 Pap Smear 2014 Influenza Vaccine 11/07/2024 Adult BMI Screening 07/12/2025 07/12/2024 Tobacco Screening 07/12/2025 07/12/2024 Medical Devices Implanted Type Area Culinary Director Device Identifier Shelf Expiration Date Model / Serial / Lot Viaflow Flowable Placental Tissue Matrix Implanted:Qty : 1 on 05/12/2024 by Bentley Sotomayor DPM at [facility] Other Implant Right: Heel [employer] 04/07/2028 [id number]-0020 / [id number] / [id number] Procedures Procedure Name Priority Date/Time Associated Diagnosis Comments MR KNEE RT WO CONT Routine 11/01/2024 1: 29 PM EDT Figueroa's cyst of knee, right Pes anserinus bursitis of right knee VASC VENOUS DUPLEX LOWER RIGHT Routine 09/14/2024 2:12 PM EDT Localized swelling, mass and lump, lower limb, right Pes anserinus bursitis of right knee from Last 3 Months Results * MR knee right without contrast (11/01/2024 1:29 PM EDT) Anatomical Region Laterality Modality MSK, Knee, Lower Extremities, Patella, MSK Cover a Right Magnetic Resonance 11/08/2024 10:4 0 AM EDT Narrative 11/08/2024 10:42 AM EDT MR KNEE RT WO CONT CLINICAL INFORMATION: [...] Seven Mena MD on 11/08/2024 10:42 AM Procedure Note Seven Mena MD - 11/08/2024 MR KNEE RT WO CONT CLINICAL INFORMATION: Figueroa's cyst of knee, right; Pes anserinus bursitisof right knee. COMPARISON: 07/12/2024. PROCEDURE: ?Multisequence, multiplanar MR images of the knee wereobtained. FINDINGS: MENISCI Medial meniscus: Intact. Lateral meniscus: Intact. LIGAMENTS Cruciate ligaments: The ACL and PCL are intact. Medial collateral ligament: Superficial and deep components intact. Noperiligamentous edema. Lateral collateral ligament: Intact. EXTENSOR MECHANISM Extensor mechanism: The distal quadriceps and patellar tendons are intact.The patella is normally positioned within the trochlear groove. There isno retinacular disruption. FLUID Fluid: No joint effusion. No Figueroa's cyst. OSSEOUS and ARTICULAR STRUCTURES Bones: No fracture, stress reaction, or osseous lesion is seen. [place]. Patellofemoral compartment: No hyaline cartilage disease. Medial compartment: No hyaline cartilage disease. Lateral compartment: No hyaline cartilage disease. IMPRESSION: * No acute meniscal or ligamentous pathology. * No bursitis or Figueroa's cyst. Finalized by Seven Mena MD on 11/08/2024 10:42 AM us Timothy Cortez PA-C IMG MRI ORDERABLES Final Resul t * Vas venous duplex lwr single right (09/14/2024 2:12 PM EDT) Anatomical Region Laterality Modality Vascular Right Ultrasound 09/14/2024 2:17 PM EDT Narrative 09/14/2024 3:46 PM EDT Right: Lower extremity deep veins are compressible with spontaneous phasic spectral Doppler waveforms; superficial veins are compressible without intraluminal content. Left: Common femoral vein is compressible with spontaneous phasic spectral Doppler waveforms. Conclusions: NO EVIDENCE of deep or superficial vein thrombosis of the right lower extremity. No evidence of deep vein thrombosis (DVT) of the left common femoral vein. Procedure Note Lissa Gray MD - 09/14/2024 Right: Lower extremity deep veins are compressible with spontaneous phasicspectral Doppler waveforms; superficial veins are compressible withoutintraluminal content. Left: Common femoral vein is compressible with spontaneous phasic spectralDoppler waveforms. Conclusions: NO EVIDENCE of deep or superficial vein thrombosis of theright lower extremity. No evidence of deep vein thrombosis (DVT) of theleft common femoral vein. us Gautam Hamilton DO CV VASCULAR ORDERABLES Henny l Result from Last 3 Months Insurance [employer] MEDICA[employer] Care Teams Eligibility And Occupancy Interviewer Relationship Specialty Start Date End Date No Pcp, [place] [address] PCP - General Family Medicine 07/12/24
--- OUTSIDE RECORDS SUMMARY | 2024-12-07 10:55 | XMS_ITS | Encounter Summary ---
Author Organization [facility] Address [address] [place] [address] Care Team Providers Care Cigar Head Piercer Name Role Phone Unavailable Primary Care Provider Unavailabl e Encounter Details Date Type Department Care Team (Late st Contact Info) Description 07/20/2024 Orders Only [facility] [address] [place] [phone] Dayanara Gallegos MA Social History Tobacco Use Types Packs/Day Years [...]
--- OUTSIDE RECORDS SUMMARY | 2024-12-07 10:55 | XMS_ITS | Encounter Summary ---
Author Organization [facility] Address [address] [place] [address] Care Team Providers Care Epic Willow Analyst Name Role Phone Unavailable Primary Care Provider Unavailabl e Encounter Details Date Type Department Care Team (Late st Contact Info) Description 08/31/2023 Clinisync Result Encounter [facility] External Department Unsolicited Julien Valerio, DO [address] [place] [address] Social History Tobacco Use Types Packs/Day Years [...] Priority Date/Time Associated Diagnosis Comments US PELVIS W/ TRANSVAGINAL 08/31/2023 12:39 PM EDT documented in this encounter Results * US PELVIS W/ TRANSVAGINAL (08/31/2023 12:39 PM EDT) Anatomical Region Laterality Modality Other 08/31/2023 12:3 9 PM EDT Narrative 08/31/2023 12:42 PM EDT [address] [address] Ultrasound Report Signed Patient: Mirna HUYNH MR#: [id number] : 1995 Acct:[id number] Age/Sex: 28 / F ADM Date: 08/31/23 Loc: [facility] Attending Dr: Julien Valerio D.O. Ordering Physician: Julien Valerio D.O. Date of Service: 08/31/23 Procedure(s): US pelvis w/ transvaginal Accession Number(s): [id number] cc: Julien Valerio D.O.; MECHELLE BERNARDO [address] [address] Patient Name: MIRNA HUYNH MRN: [id number] date: 1995 Sex: F Assigned Patient Location: [facility] Current Patient Location: [facility] Accession/Order Number: [id number] Exam Date: 08/31/2023 09:25 Report Date: 08/31/2023 12:39 At the request of: JULIEN VALERIO Procedure: US pelvis w/ transvaginal EXAMINATION: US pelvis w/ transvaginal HISTORY: OVARIAN CYST COMPARISON: [facility] 07[facility]2023 FINDINGS: Transabdominal and transvaginal images The uterus is normal in size, contour and echotexture measuring 8.9 x 3.6 x 6.0 cm. No focal myometrial mass. Uterus is anteverted, anteflexed The endometrium measures 7 mm, normal The right ovary is normal measuring 4.3 x 1.7 x 1.8 cm. Normal color and Doppler flow. Resolution of previously identified cyst. The left ovary is normal in appearance measuring 4.9 x 3.3 x 4.2 cm. Normal color and Doppler flow. 4.0 x 3.8 x 2.9 cm area of anechoic echogenicity. No free fluid US/US pelvis w/ transvaginal IMPRESSION: 4.0 cm left ovarian simple cyst Normal right ovary Electronically authenticated by: BORIS TALLEY Date: 08/31/2023 12:39 Dictated By: Boris Talley M.D. Signed By: 08/31/23 1242 DD/ 1239 TD/TT: Chemistry Lab Instructor: Procedure Note Radiology, Radiologist, MD - 08/31/2023 [place] [address] Ultrasound Report Signed Patient: Mirna HUYNH#: [id number] : 1995Acct:[id number] Age/Sex: 28 / FADM Date: 08/31/23 Loc: [facility] Attending Dr: Julien Valerio D.O. Ordering Physician: Julien Valerio D.O. Date of Service: 08/31/23 Procedure(s): US pelvis w/ transvaginal Accession Number(s): [id number] cc: Julien Valerio D.O.; MECHELLE BERNARDO [place] [id number] Patient Name: MIRNA HUYNH MRN: [facility]:[id number] date: 1995 Sex: F Assigned Patient Location: [facility] Current Patient Location: [facility] Accession/Order Number: [id number] Exam Date: 08/31/2023 09:25 Report Date: 08/31/2023 12:39 At the request of: JULIEN VALERIO Procedure: US pelvis w/ transvaginal EXAMINATION: US pelvis w/ transvaginal HISTORY: OVARIAN CYST COMPARISON: [facility] report from [facility] dated 07/28/2023 FINDINGS: Transabdominal and transvaginal images The uterus is normal in size, contour and echotexture measuring 8.9 x 3.6x 6.0 cm. No focal myometrial mass. Uterus is anteverted, anteflexed The endometrium measures 7 mm, normal The right ovary is normal measuring 4.3 x 1.7 x 1.8 cm. Normal color and Doppler flow. Resolution of previously identified cyst. The left ovary is normal in appearance measuring 4.9 x 3.3 x 4.2 cm.Normal color and Doppler flow. 4.0 x 3.8 x 2.9 cm area of anechoic echogenicity. No free fluid US/US pelvis w/ transvaginal IMPRESSION: 4.0 cm left ovarian simple cyst Normal right ovary Electronically authenticated by: BORIS TALLEY Date: 08/31/2023 12:39 Dictated By: Boris Talley M.D. Signed By:08/31/23 1242 DD/ 1239 TD/TT: Chemistry Lab Instructor: us Julien Valerio DO [facility] Final Result documented in this encounter Visit Diagnoses Not on filedocumented in this encounter
--- OUTSIDE RECORDS SUMMARY | 2024-12-07 10:55 | XMS_ITS | Encounter Summary ---
Author Organization [facility] Address [address] [place] [address] Care Team Providers Care Dinkey Engine Firer/Fireman Name Role Phone Unavailable Primary Care Provider Unavailabl e Encounter Details Date Type Department Care Team (Late st Contact Info) Description 12/08/2023 Abstract [facility] [address] [place] [id number] Lorenzo Valerio DO [address] [place] [address] Social History Tobacco Use Types Packs/Day Years [...]
--- OUTSIDE RECORDS SUMMARY | 2024-12-07 10:55 | XMS_ITS | Encounter Summary ---
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 [facility] Comment: TESTS RESULT FLAG UNITS REF RANGE LAB Clinician Provided Cytology Information Source.............Cervix;Endocervix No. of containers..01 ThinPrep Vial Age Alec SCHMID Edilma... 3065 01 FLAG LEGEND: L-Low Normal,H-High Normal,LL-Alert Low,HH-Alert High <-Panic Low,>-Panic High,A-Abnormal,AA-Critical Abnormal Performed at: 01 [facility] [address] [place] [address] Mohini Benson MD, IGP, APTIMA HPV, RFX [birth year]18[birth year] Note . [facility] Comment: TESTS RESULT FLAG UNITS REF RANGE LAB DIAGNOSIS: 02 NEGATIVE FOR INTRAEPITHELIAL LESION OR MALIGNANCY. Specimen adequacy: 02 Satisfactory for evaluation. Endocervical and/or squamous metaplastic cells (endocervical component) are present. Performed by: Audelia Mac Paramedical Aide ([facility]) . 02 Note: Note 02 The Pap [...] <-Panic Low,>-Panic High,A-Abnormal,AA-Critical Abnormal Performed at: [address] [address] Mohini Benson MD, HPV APTIMA Negative Negative TB Comment: This nucleic acid amplification test detects fourteen high- risk HPV types (16,18,31,33,35,39,45,51,52,56,58,59,66,68) without differentiation. Performed at: =[address] [id number] Potato Spotter: Mohini Benson MD, Phone: [phone] Performed at: [address] [id number] Potato Spotter: Mohini Benson MD, Phone: [phone] 11/23/2024 2:43 PM EDT 11/24/2024 6:07 AM EDT Narrative [facility] - 11/29/2024 7:12 PM EDT BRUSH-SPATULA CERVIX ENDOCERVIX us Odalis LIU LAB BLOOD ORDERABLES Final Resul t [facility] documented in this encounter Visit Diagnoses Not on filedocumented in this encounter
== END 2024-12-07 10:54 | disposition home or self-care (01) ==
LOC: US 10:53
PROVIDERS: PCP Family Medicine; Visit Provider Physician Assistant
DX: Z01.419 Encounter for gynecological examination (general) (routine) without abnormal findings (principal); N92.6 Irregular menstruation, unspecified; N83.201 Unspecified ovarian cyst, right side
CPT/HCPCS: 76830; 76856